=== PATIENT | male | born 1975 ===

== ENCOUNTER 2016-07-07 17:22 | Emergency (ER) | payer OTHER ==
[2016-07-07 17:22] VITALS: BMI 29.0
[2016-07-07 17:45] VITALS: BP 145/81; PULSE 82; RESP 16; TEMP 98.3; O2SAT 99
--- NOTE | 2016-07-07 19:12 | ED PDOC ---
HPI: General Adult Time Seen by Provider: 07/07/16 18:21 Chief Complaint (Nursing): Abdominal Pain Chief Complaint (Provider): Abdominal pain, knee pain, sore throat History Per: Patient Additional Complaint(s): Pt. states for the past 2 days he's had sore throat associated without fever. Also pt. is requesting new pain meds for his "chronic R knee pain." He has been taking Naproxen without relief. Further reports that his pantoprazole is not working and is requesting an Rx for pepcid. States that he has a long hx of "acid in the stomach." Denies fever, rash, chest pain, SOB, palpitations, sick contacts, recent travel. Past Medical History Reviewed: Historical Data, Nursing Documentation, Vital Signs Vital Signs: Last Vital Signs Temp 98.3 F 07/07/16 17:42 Pulse 82 07/07/16 17:42 Resp 16 07/07/16 17:42 BP 145/81 07/07/16 17:42 Pulse Ox 99 07/07/16 17:42 - Medical History PMH: Depression, Gastritis, Chronic Pain Denies: Diabetes, Hepatitis, HIV, HTN, Chronic Kidney Disease, Seizures, Sexually Transmitted Disease - Family History Family History: States: Unknown Family Hx - Immunization History Hx Tetanus Toxoid Vaccination: No Hx Influenza Vaccination: Yes (2015) Hx Pneumococcal Vaccination: No - Home Medications Home Medications: Ambulatory Orders Medication Instructions Recorded Mirtazapine [Remeron Soltab] 15 mg PO DAILY #5 odt 05/27/16 Mirtazapine [Remeron] 30 mg PO DAILY 05/27/16 buPROPion SR [Wellbutrin SR 150 MG] 150 mg PO DAILY 05/27/16 busPIRone [Buspar] 10 mg PO DAILY 05/27/16 Naproxen [Naprosyn Tab] 375 mg PO BID PRN #20 tab 06/23/16 Pantoprazole [Protonix EC Tab] 20 mg PO DAILY #15 ect 06/23/16 - Allergies Allergies/Adverse Reactions: Allergies Allergy/AdvReac Type Severity Reaction Status Date / Time No Known Allergies Allergy Verified 05/20/16 09:34 Review of Systems ROS Statement: Except As Marked, All Systems Reviewed And Found Negative ENT: Positive for: Throat Pain Gastrointestinal: Positive for: Abdominal Pain Physical Exam - Physical Exam Appears: Positive for: Well, Non-toxic, No Acute Distress Skin: Positive for: Normal Color, Warm. Negative for: Rash Eye Exam: Positive for: EOMI, Normal appearance, PERRL ENT: Positive for: TM Is/Are (WNL b/l), Pharyngeal Erythema. Negative for: Tonsillar Exudate, Tonsillar Swelling Gastrointestinal/Abdominal: Positive for: Normal Exam, Bowel Sounds, Soft. Negative for: Tenderness, Organomegaly Extremity: Positive for: Normal ROM (without tenderness including R knee) Neurologic/Psych: Positive for: Alert, Oriented - ECG O2 Sat by Pulse Oximetry: 99 - Progress ED Course And Treament: Toradol 15mg IM, pepcid 40mg PO, rapid strep ordered but pt. left before any tests and meds were given. Disposition - Clinical Impression Clinical Impression: Abdominal pain, Knee pain, Sore throat - Patient ED Disposition Is Patient to be Admitted: No - Disposition Disposition: Left W/O Treatment Disposition Time: 19:14 Condition: STABLE
== END 2016-07-07 19:11 | disposition left against medical advice (07) ==
LOC: H.ER 17:22
DX: Z02.89 Encounter for other administrative examinations (principal)

== ENCOUNTER 2016-07-13 09:29 | Emergency (ER) | payer OTHER ==
[2016-07-13 09:32] VITALS: BP 137/82; PULSE 90; RESP 18; TEMP 98; O2SAT 100; BMI 27.4
--- NOTE | 2016-07-13 10:06 | ED PDOC ---
Lower Extremity Pain/Injury Time Seen by Provider: 07/13/16 09:40 Chief Complaint (Nursing): Lower Extremity Problem/Injury Chief Complaint (Provider): right knee pain History Per: Patient History/Exam Limitations: no limitations Onset/Duration Of Symptoms: Days (1 year) Current Symptoms Are (Timing): Still Present Additional Complaint(s): Pt. with R knee pain. Constant. Ongoing for 1 year. No new injury. No numbness, tingles, weakness, calf pain, headaches. Ambulating on it. Demanding narcotics, imaging, and knee brace. Here yesterday and states he got bad care so he left. Past Medical History Reviewed: Nursing Documentation, Vital Signs Vital Signs: Last Vital Signs Temp 98.0 F 07/13/16 09:31 Pulse 90 07/13/16 09:31 Resp 18 07/13/16 09:31 BP 137/82 07/13/16 09:31 Pulse Ox 100 07/13/16 09:31 - Medical History PMH: Depression, Gastritis, Chronic Pain Denies: Diabetes, Hepatitis, HIV, HTN, Chronic Kidney Disease, Seizures, Sexually Transmitted Disease - Family History Family History: States: Unknown Family Hx - Social History Alcohol: None Drugs: Denies - Immunization History Hx Tetanus Toxoid Vaccination: No Hx Influenza Vaccination: Yes (2015) Hx Pneumococcal Vaccination: No - Home Medications Home Medications: Ambulatory Orders Medication Instructions Recorded Mirtazapine [Remeron Soltab] 15 mg PO DAILY #5 odt 05/27/16 Mirtazapine [Remeron] 30 mg PO DAILY 05/27/16 buPROPion SR [Wellbutrin SR 150 MG] 150 mg PO DAILY 05/27/16 busPIRone [Buspar] 10 mg PO DAILY 05/27/16 Naproxen [Naprosyn Tab] 375 mg PO BID PRN #20 tab 06/23/16 Pantoprazole [Protonix EC Tab] 20 mg PO DAILY #15 ect 06/23/16 Ibuprofen [Motrin] 600 mg PO TID 7 Days 07/13/16 - Allergies Allergies/Adverse Reactions: Allergies Allergy/AdvReac Type Severity Reaction Status Date / Time No Known Allergies Allergy Verified 05/20/16 09:34 Review of Systems Constitutional: Negative for: Weakness Cardiovascular: Negative for: Chest Pain Respiratory: Negative for: Shortness of Breath Musculoskeletal: Positive for: Leg Pain. Negative for: Neck Pain, Shoulder Pain , Arm Pain, Back Pain, Hand Pain Skin: Negative for: Rash Neurological: Negative for: Weakness Physical Exam - Reviewed Nursing Documentation Reviewed: Yes - Physical Exam Appears: Positive for: Well, Non-toxic, No Acute Distress ENT: Positive for: Normal ENT Inspection Neck: Positive for: Normal, Painless ROM, Supple Cardiovascular/Chest: Positive for: Regular Rate, Rhythm Respiratory: Positive for: Normal Breath Sounds Back: Positive for: Normal Inspection. Negative for: L CVA Tenderness, R CVA Tenderness Extremity: Positive for: Normal ROM, Other (no laxity). Negative for: Tenderness, Pedal Edema, Deformity - ECG O2 Sat by Pulse Oximetry: 100 Pulse Ox Interpretation: Normal - Radiology X-Ray: Interpreted by Me, Viewed By Me X-Ray Interpretation: No Acute Disease - Progress ED Course And Treament: 1104: Demanding narcotics. Aggressive toward staff. Ambulating with no issues. Fu with pcp. Disposition - Clinical Impression Clinical Impression: Knee pain - Patient ED Disposition Is Patient to be Admitted: No Counseled Patient/Family Regarding: Studies Performed, Diagnosis, Need For Followup, Rx Given - Disposition Referrals: [facility] [Outside] - 07/14/16 Disposition: Routine/Home Disposition Time: 11:05 Condition: STABLE Additional Instructions: Return if not better in 3 days. Prescriptions: Ibuprofen [Motrin] 600 mg PO TID 7 Days Instructions: Knee Pain (ED)
--- NOTE | 2016-07-13 13:17 | RAD ---
PROCEDURE: Right Knee Radiographs. HISTORY: pain COMPARISON: 04/17/2016 FINDINGS: BONES: No fracture. Evidence of prior ACL repair. JOINTS: Mild tricompartmental osteoarthritis. Mild joint space narrowing and marginal osteophytes. . JOINT EFFUSION: None. OTHER FINDINGS: None. IMPRESSION: Mild tricompartmental osteoarthritis. Evidence of prior ACL repair. No acute fracture.
== END 2016-07-13 11:54 | disposition home or self-care (01) ==
LOC: H.ER 09:29
DX: M25.561 Pain in right knee (principal)

== ENCOUNTER 2016-07-31 17:00 | Emergency (ER) | payer OTHER ==
[2016-07-31 17:00] VITALS: BMI 29.0
[2016-07-31 17:08] VITALS: BP 124/53; PULSE 103; RESP 20; TEMP 97.1; O2SAT 98
--- NOTE | 2016-07-31 17:52 | ED PDOC ---
Lower Extremity Pain/Injury Time Seen by Provider: 07/31/16 17:46 Chief Complaint (Nursing): Lower Extremity Problem/Injury Chief Complaint (Provider): right knee pain History Per: Patient History/Exam Limitations: no limitations Onset/Duration Of Symptoms: Days (years) Additional Complaint(s): Pito Clarke is a 40 year old male, with a previous medical history of chronic right knee pain and gastritis, who presents to the ED with complaints of right knee pain which has been ongoing for years. Pt denies any recent trauma , fall, injury to the knee, half tenderness, numbness or tingling. Pt is requesting narcotic medication for the pain. Pt is requesting prevacid for heartburn he is experiencing. Of note, pt was seen in the ED multiple times for right knee pain requesting narcotic. Last ED visit was 2 weeks ago where he requested narcotics. PMD: none provided Past Medical History Reviewed: Historical Data, Nursing Documentation, Vital Signs Vital Signs: Last Vital Signs Temp 97.1 F L 07/31/16 17:03 Pulse 103 H 07/31/16 17:03 Resp 20 07/31/16 17:03 BP 124/53 L 07/31/16 17:03 Pulse Ox 98 07/31/16 17:03 - Medical History PMH: Depression, Gastritis, Chronic Pain Denies: Diabetes, Hepatitis, HIV, HTN, Chronic Kidney Disease, Seizures, Sexually Transmitted Disease - Family History Family History: States: Unknown Family Hx - Immunization History Hx Tetanus Toxoid Vaccination: No Hx Influenza Vaccination: Yes (2015) Hx Pneumococcal Vaccination: No - Home Medications Home Medications: Ambulatory Orders Medication Instructions Recorded Mirtazapine [Remeron Soltab] 15 mg PO DAILY #5 odt 05/27/16 Mirtazapine [Remeron] 30 mg PO DAILY 05/27/16 buPROPion SR [Wellbutrin SR 150 MG] 150 mg PO DAILY 05/27/16 busPIRone [Buspar] 10 mg PO DAILY 05/27/16 Naproxen [Naprosyn Tab] 375 mg PO BID PRN #20 tab 06/23/16 Pantoprazole [Protonix EC Tab] 20 mg PO DAILY #15 ect 06/23/16 Ibuprofen [Motrin] 600 mg PO TID 7 Days 07/13/16 Naproxen 500 mg PO Q8 #30 tab 07/31/16 - Allergies Allergies/Adverse Reactions: Allergies Allergy/AdvReac Type Severity Reaction Status Date / Time No Known Allergies Allergy Verified 07/31/16 17:03 Review of Systems ROS Statement: Except As Marked, All Systems Reviewed And Found Negative Gastrointestinal: Positive for: Other (heart burn ) Musculoskeletal: Positive for: Leg Pain (right knee pain ) Physical Exam - Reviewed Nursing Documentation Reviewed: Yes Vital Signs Reviewed: Yes - Physical Exam Appears: Positive for: Well, Non-toxic, No Acute Distress Head Exam: Positive for: ATRAUMATIC, NORMAL INSPECTION, NORMOCEPHALIC Extremity: Positive for: Normal ROM, Capillary Refill (< 2 seconds ). Negative for: Tenderness, Pedal Edema, Calf Tenderness, Deformity, Swelling Neurologic/Psych: Positive for: Alert, Oriented - ECG O2 Sat by Pulse Oximetry: 98 (RA) Pulse Ox Interpretation: Normal Medical Decision Making Medical Decision Making: Initial Impression: Initial Plan: * toradol * reevaluation Scribe Attestation: Documented by Antoinette Swan, acting as a scribe for Rebeca Shukla PA-C. Provider Scribe Attestation: All medical record entries made by the Scribe were at my direction and personally dictated by me. I have reviewed the chart and agree that the record accurately reflects my personal performance of the history, physical exam, medical decision making, and the department course for this patient. I have also personally directed, reviewed, and agree with the discharge instructions and disposition. Disposition - Clinical Impression Clinical Impression: Chronic knee pain - Patient ED Disposition Is Patient to be Admitted: No Counseled Patient/Family Regarding: Studies Performed, Diagnosis, Need For Followup - Disposition Referrals: Chelita Velázquez [Primary Care Provider] - Disposition: Routine/Home Disposition Time: 18:26 Condition: STABLE Prescriptions: Naproxen 500 mg PO Q8 #30 tab Instructions: Knee Pain (ED)
== END 2016-07-31 18:46 | disposition home or self-care (01) ==
LOC: H.ER 17:00
DX: M25.561 Pain in right knee (principal)

== ENCOUNTER 2016-08-11 10:53 | Emergency (ER) | payer OTHER ==
[2016-08-11 10:53] VITALS: BMI 29.0
[2016-08-11 11:20] VITALS: BP 108/66; PULSE 80; RESP 20; TEMP 98.3; O2SAT 98
--- NOTE | 2016-08-11 13:01 | ED PDOC ---
HPI: CCC, URI, Sore Throat Time Seen by Provider: 08/11/16 11:53 Chief Complaint (Nursing): ENT Problem Chief Complaint (Provider): Sore Throat History Per: Patient History/Exam Limitations: no limitations Have you had recent travel within the past 21 days to any of the following countries: [place], [place], [place] or [place]?: No Onset/Duration Of Symptoms: Days (since yesterday) Current Symptoms Are (Timing): Still Present Associated Symptoms: denies: Fever, Chills, Myalgias, Other (no shortness of breath) Severity: Moderate Additional Complaint(s): Pito Clarke is a 40 year old male, with no pertinent past medical history, who presents to the ED on 08/11/16 for the evaluation of a moderately sore throat that he has experienced since yesterday after having inhaled some dust while sleeping on the floor of a local homeless alf. Patient also reports feeling as if there is a "lump" in his throat, a sensation that is made worse by swallowing. Denies fever, chills, myalgias, dizziness or shortness of breath. Requesting that he be tested for Strep. PMD: non CPH Past Medical History Reviewed: Historical Data, Nursing Documentation, Vital Signs Vital Signs: Last Vital Signs Temp 98.3 F 08/11/16 11:18 Pulse 80 08/11/16 11:18 Resp 20 08/11/16 11:18 BP 108/66 08/11/16 11:18 Pulse Ox 98 08/11/16 13:04 - Medical History PMH: Depression, Gastritis, Chronic Pain Denies: Diabetes, Hepatitis, HIV, HTN, Chronic Kidney Disease, Seizures, Sexually Transmitted Disease - Family History Family History: States: Unknown Family Hx - Living Arrangements Living Arrangements: Other (homeless) - Social History Current smoker - smoking cessation education provided: Yes (light (<10 cigarettes/day)) Alcohol: None Drugs: Denies - Immunization History Hx Tetanus Toxoid Vaccination: No Hx Influenza Vaccination: Yes (2016) Hx Pneumococcal Vaccination: No - Home Medications Home Medications: Ambulatory Orders Medication Instructions Recorded Mirtazapine [Remeron Soltab] 15 mg PO DAILY #5 odt 05/27/16 Mirtazapine [Remeron] 30 mg PO DAILY 05/27/16 buPROPion SR [Wellbutrin SR 150 MG] 150 mg PO DAILY 05/27/16 busPIRone [Buspar] 10 mg PO DAILY 05/27/16 Naproxen [Naprosyn Tab] 375 mg PO BID PRN #20 tab 06/23/16 Pantoprazole [Protonix EC Tab] 20 mg PO DAILY #15 ect 06/23/16 Ibuprofen [Motrin] 600 mg PO TID 7 Days 07/13/16 Naproxen 500 mg PO Q8 #30 tab 07/31/16 Albuterol HFA [Ventolin HFA 90 2 puff IH Q6 #200 puff 08/11/16 mcg/actuation (8 g)] - Allergies Allergies/Adverse Reactions: Allergies Allergy/AdvReac Type Severity Reaction Status Date / Time No Known Allergies Allergy Verified 07/31/16 17:03 Review of Systems Constitutional: Negative for: Fever, Chills, Other (no myalgias) ENT: Positive for: Throat Pain Respiratory: Negative for: Shortness of Breath Neurological: Negative for: Dizziness Physical Exam - Reviewed Nursing Documentation Reviewed: Yes Vital Signs Reviewed: Yes - Physical Exam Appears: Positive for: Non-toxic, No Acute Distress Head Exam: Positive for: ATRAUMATIC, NORMOCEPHALIC Skin: Positive for: Normal Color, Warm, Dry Eye Exam: Positive for: Normal appearance, PERRL ENT: Positive for: Normal ENT Inspection. Negative for: Pharyngeal Erythema, Tonsillar Exudate, Tonsillar Swelling Cardiovascular/Chest: Positive for: Regular Rate, Rhythm. Negative for: Murmur Respiratory: Positive for: Normal Breath Sounds. Negative for: Rales, Rhonchi, Wheezing, Respiratory Distress Neurologic/Psych: Positive for: Alert, Oriented - ECG O2 Sat by Pulse Oximetry: 98 (RA) Pulse Ox Interpretation: Normal Medical Decision Making Medical Decision Makin:53 Initial Impression: throat pain Patient has declined offer of supplemental O2. Initial Plan: * Rapid Strep * Throat Culture rapid strep: negative pt given albuterol resucue inhaler for coughing Scribe Attestation: Documented by Karli Luis, acting as a scribe for Rebeca Shukla PA-C. Provider Scribe Attestation: All medical record entries made by the Scribe were at my direction and personally dictated by me. I have reviewed the chart and agree that the record accurately reflects my personal performance of the history, physical exam, medical decision making, and the department course for this patient. I have also personally directed, reviewed, and agree with the discharge instructions and disposition. Disposition - Clinical Impression Clinical Impression: Sore throat - Patient ED Disposition Is Patient to be Admitted: No Counseled Patient/Family Regarding: Studies Performed, Diagnosis, Need For Followup, Rx Given - Disposition Disposition: Routine/Home Disposition Time: 13:09 Condition: STABLE Prescriptions: Albuterol HFA [Ventolin HFA 90 mcg/actuation (8 g)] 2 puff IH Q6 #200 puff Instructions: Albuterol (By breathing)
== END 2016-08-11 13:45 | disposition home or self-care (01) ==
LOC: H.ER 10:53
DX: J02.9 Acute pharyngitis, unspecified (principal)

== ENCOUNTER 2016-10-10 20:14 | Emergency (ER) | payer MEDICAID, OTHER ==
[2016-10-10 20:14] VITALS: BMI 29.0
[2016-10-10 20:48] VITALS: BP 121/68; PULSE 98; RESP 18; TEMP 98.3; O2SAT 99
--- NOTE | 2016-10-10 22:25 | CT ---
EXAM: CT Head Without Intravenous Contrast CLINICAL HISTORY: 41 years old, male; Pain; Headache; Headache not specified; Additional info: Headaches, waking up from sleep TECHNIQUE: Axial computed tomography images of the head/brain without intravenous contrast. This CT exam was performed using one or more of the following dose reduction techniques: automated exposure control, adjustment of the mA and/or kV according to patient size, and/or use of iterative reconstruction technique. Coronal and sagittal reformatted images were created and reviewed. COMPARISON: No relevant prior studies available. FINDINGS: Brain: No intracranial hemorrhage. No mass. No definite edema. Ventricles: No hydrocephalus. Bones/joints: No acute fracture. Soft tissues: Unremarkable. Sinuses: Scattered minimal to mild mucosal thickening of frontal, ethmoid sinuses. Small LEFT sphenoid retention cyst. Mastoid air cells: No mastoid effusion. Orbits: Unremarkable as visualized. IMPRESSION: 1. No acute intracranial abnormality. 2. Incidental/non-acute findings are described above.
--- NOTE | 2016-10-10 23:30 | ED PDOC ---
HPI: Headache Time Seen by Provider: 10/10/16 21:47 Chief Complaint (Nursing): Headache Chief Complaint (Provider): Headaches, "I feeling like something is in my head" History Per: Patient History/Exam Limitations: no limitations Onset/Duration Of Symptoms: Days Current Symptoms Are (Timing): Still Present Severity: Severe Pain Scale Rating Of: 10 Quality: Sharp Preceeding Symptoms: None Additional Complaint(s): Pt states he knows something is wrong. Pt cannot given specific symptoms of "whats wrong" but states he wakes up from sleep with headaches. Past Medical History Reviewed: Historical Data, Nursing Documentation, Vital Signs Vital Signs: Last Vital Signs Temp 98.3 F 10/10/16 20:45 Pulse 98 H 10/10/16 20:45 Resp 18 10/10/16 20:45 BP 121/68 10/10/16 20:45 Pulse Ox 99 10/10/16 20:45 - Medical History PMH: Depression, Gastritis, Chronic Pain Denies: Diabetes, Hepatitis, HIV, HTN, Chronic Kidney Disease, Seizures, Sexually Transmitted Disease - Surgical History Surgical History: No Surg Hx - Family History Family History: States: Unknown Family Hx - Immunization History Hx Tetanus Toxoid Vaccination: No Hx Influenza Vaccination: Yes (2016) Hx Pneumococcal Vaccination: No - Home Medications Home Medications: Ambulatory Orders Medication Instructions Recorded Mirtazapine [Remeron Soltab] 15 mg PO DAILY #5 odt 05/27/16 Mirtazapine [Remeron] 30 mg PO DAILY 05/27/16 buPROPion SR [Wellbutrin SR 150 MG] 150 mg PO DAILY 05/27/16 busPIRone [Buspar] 10 mg PO DAILY 05/27/16 Naproxen [Naprosyn Tab] 375 mg PO BID PRN #20 tab 06/23/16 Pantoprazole [Protonix EC Tab] 20 mg PO DAILY #15 ect 06/23/16 Ibuprofen [Motrin] 600 mg PO TID 7 Days 07/13/16 Naproxen 500 mg PO Q8 #30 tab 07/31/16 Acetaminophen [Tylenol 325mg tab] 650 mg PO Q6 #30 tab 08/11/16 Albuterol HFA [Ventolin HFA 90 2 puff IH Q6 #200 puff 08/11/16 mcg/actuation (8 g)] - Allergies Allergies/Adverse Reactions: Allergies Allergy/AdvReac Type Severity Reaction Status Date / Time No Known Allergies Allergy Verified 07/31/16 17:03 Review of Systems ROS Statement: Except As Marked, All Systems Reviewed And Found Negative Neurological: Positive for: Headache Physical Exam - Reviewed Nursing Documentation Reviewed: Yes Vital Signs Reviewed: Yes - Physical Exam Appears: Positive for: Well, Non-toxic, No Acute Distress Head Exam: Positive for: ATRAUMATIC, NORMAL INSPECTION, NORMOCEPHALIC Skin: Positive for: Normal Color, Warm, DRY Eye Exam: Positive for: EOMI, Normal appearance, PERRL ENT: Positive for: Normal ENT Inspection Neck: Positive for: Normal, Painless ROM Cardiovascular/Chest: Positive for: Regular Rate, Rhythm Respiratory: Positive for: CNT, Normal Breath Sounds Gastrointestinal/Abdominal: Positive for: Normal Exam, Bowel Sounds, Soft Back: Positive for: Normal Inspection Extremity: Positive for: Normal ROM Neurologic/Psych: Positive for: Alert, Oriented - ECG O2 Sat by Pulse Oximetry: 99 Pulse Ox Interpretation: Normal Disposition - Clinical Impression Clinical Impression: Headache - Patient ED Disposition Is Patient to be Admitted: No Counseled Patient/Family Regarding: Diagnosis, Need For Followup - Disposition Referrals: [facility] [Outside] Disposition: Routine/Home Disposition Time: 23:31 Condition: GOOD Instructions: Acute Headache (ED)
== END 2016-10-10 23:59 | disposition home or self-care (01) ==
LOC: H.ER 20:14
DX: R51 Headache (principal)

== ENCOUNTER 2016-11-06 06:32 | Emergency (ER) | payer OTHER ==
[2016-11-06 06:33] VITALS: BMI 29.0
[2016-11-06 06:47] VITALS: TEMP 98
--- NOTE | 2016-11-06 07:29 | ED PDOC ---
Lower Extremity Pain/Injury Time Seen by Provider: 11/06/16 07:10 Chief Complaint (Nursing): Lower Extremity Problem/Injury Chief Complaint (Provider): Right knee pain History Per: Patient History/Exam Limitations: no limitations Onset/Duration Of Symptoms: Days (since 2009) Current Symptoms Are (Timing): Still Present Additional Complaint(s): Pito Clarke is a 41 y/o male with a past medical history of right ACL repair , who presents to the emergency room complaining of right knee pain, ongoing since 2009, as well as sinus pressure. Patient reports needing an X-Ray of his right knee before he sees his orthopedist in [place]. He states needing to see the specialist in [place] due to issues with insurance. Patient reports taking Motrin and Tylenol without relief of his sinus pressure. PMD: Taylor Serrato MD Past Medical History Reviewed: Historical Data, Nursing Documentation, Vital Signs Vital Signs: Last Vital Signs Temp 98 F 11/06/16 06:44 Pulse 63 11/06/16 06:44 Resp 16 11/06/16 06:44 BP 112/51 L 11/06/16 06:44 Pulse Ox 98 11/06/16 06:44 - Medical History PMH: Depression, Gastritis, Chronic Pain Denies: Diabetes, Hepatitis, HIV, HTN, Chronic Kidney Disease, Seizures, Sexually Transmitted Disease - Surgical History Other surgeries: Right ACL repair - Family History Family History: States: Unknown Family Hx - Social History Current smoker - smoking cessation education provided: Yes (Light smoker) Alcohol: None Drugs: Cannabis - Immunization History Hx Tetanus Toxoid Vaccination: No Hx Influenza Vaccination: Yes (2015) Hx Pneumococcal Vaccination: No - Home Medications Home Medications: Ambulatory Orders Medication Instructions Recorded Mirtazapine [Remeron Soltab] 15 mg PO DAILY #5 odt 05/27/16 Mirtazapine [Remeron] 30 mg PO DAILY 05/27/16 buPROPion SR [Wellbutrin SR 150 MG] 150 mg PO DAILY 05/27/16 busPIRone [Buspar] 10 mg PO DAILY 05/27/16 Pantoprazole [Protonix EC Tab] 20 mg PO DAILY #15 ect 06/23/16 Ibuprofen [Motrin] 600 mg PO TID 7 Days 07/13/16 Naproxen 500 mg PO Q8 #30 tab 07/31/16 Acetaminophen [Tylenol 325mg tab] 650 mg PO Q6 #30 tab 08/11/16 Albuterol HFA [Ventolin HFA 90 2 puff IH Q6 #200 puff 08/11/16 mcg/actuation (8 g)] Ibuprofen [Motrin] 600 mg PO Q6H PRN #20 tab 11/06/16 Ciprofloxacin [Cipro] 1 tab PO BID #14 tab 11/08/16 Ibuprofen [Motrin] 1 tab PO TID PRN #30 tab 11/08/16 - Allergies Allergies/Adverse Reactions: Allergies Allergy/AdvReac Type Severity Reaction Status Date / Time No Known Allergies Allergy Verified 07/31/16 17:03 Review of Systems ROS Statement: Except As Marked, All Systems Reviewed And Found Negative ENT: Positive for: Other (Sinus pressure) Musculoskeletal: Positive for: Leg Pain (Right knee pain) Physical Exam - Reviewed Nursing Documentation Reviewed: Yes Vital Signs Reviewed: Yes - Physical Exam Appears: Positive for: Well, Non-toxic, No Acute Distress Head Exam: Positive for: ATRAUMATIC, NORMAL INSPECTION, NORMOCEPHALIC Skin: Positive for: Normal Color, Warm, Dry Eye Exam: Positive for: Normal appearance, EOMI, PERRL ENT: Positive for: Normal ENT Inspection. Negative for: Sinus Pain/Drainage ( No sinus tenderness on palpation) Neck: Positive for: Normal, Painless ROM, Supple Cardiovascular/Chest: Positive for: Regular Rate, Rhythm. Negative for: Murmur Respiratory: Positive for: Normal Breath Sounds. Negative for: Accessory Muscle Use, Respiratory Distress Back: Positive for: Normal Inspection. Negative for: L CVA Tenderness, R CVA Tenderness, Vertebral Tenderness Extremity: Positive for: Normal ROM (Full ROM at the knee). Negative for: Pedal Edema, Deformity Neurologic/Psych: Positive for: Alert, Oriented - ECG O2 Sat by Pulse Oximetry: 98 (RA) Pulse Ox Interpretation: Normal - Radiology X-Ray: Interpreted by Me, Viewed By Me Nexus Criteria: Negative Medical Decision Making Medical Decision Making: Time: 07:24 Initial Plan: --Pending X-Ray Right Knee 2 views --Of note, Patient was here on 10/10/2016 and had a Head CT that was normal Time: 09:33 Upon provider evaluation patient is medically stable, and requires no further treatment in the ED at this time. Patient will be discharged with Rx for Ibuprofen 600 mg PO as needed for pain. Counseling was provided and all questions were answered regarding diagnosis and need for follow up. There is agreement to discharge plan. Return if symptoms persist or worsen. Scribe Attestation: Documented by Didi Abreu, acting as a scribe for Antoinette Kaiser MD Provider Scribe Attestation: All medical record entries made by the Scribe were at my direction and personally dictated by me. I have reviewed the chart and agree that the record accurately reflects my personal performance of the history, physical exam, medical decision making, and the department course for this patient. I have also personally directed, reviewed, and agree with the discharge instructions and disposition. Disposition - Clinical Impression Clinical Impression: Chronic knee pain - Patient ED Disposition Is Patient to be Admitted: No Doctor Will See Patient In The: Office Counseled Patient/Family Regarding: Diagnosis, Need For Followup, Rx Given - Disposition [facility] Disposition: Routine/Home Disposition Time: 09:30 Condition: STABLE Prescriptions: Ibuprofen [Motrin] 600 mg PO Q6H PRN #20 tab PRN Reason: Pain, Moderate (4-7) Instructions: Knee Pain (ED)
--- NOTE | 2016-11-06 09:35 | RAD ---
PROCEDURE: Right Knee Radiographs, two views. HISTORY: COMPARISON: None available. FINDINGS: BONES: Postsurgical changes. No acute displaced fracture. JOINTS: No dislocation. JOINT EFFUSION: No significant joint effusion. OTHER FINDINGS: None. IMPRESSION: No acute displaced fracture, dislocation, or significant joint effusion identified. If symptoms persist, or if there is continued clinical concern, x-ray follow-up in 7-10 days should be considered.
[2016-11-06 09:40] VITALS: BP 118/65; PULSE 88; RESP 18
[2016-11-15 14:20] VITALS: O2SAT 98
== END 2016-11-06 09:40 | disposition home or self-care (01) ==
LOC: H.ER 06:32
DX: M25.561 Pain in right knee (principal)

== ENCOUNTER 2016-11-20 14:08 | Emergency (ER) | payer MEDICAID, OTHER ==
[2016-11-20 14:08] VITALS: BMI 29.0
[2016-11-20 14:36] VITALS: BP 130/65; PULSE 77; RESP 16; TEMP 98; O2SAT 98
--- NOTE | 2016-11-20 14:42 | ED PDOC ---
Lower Extremity Pain/Injury Time Seen by Provider: 11/20/16 14:34 Chief Complaint (Nursing): Lower Extremity Problem/Injury Chief Complaint (Provider): Lower Extremity Problem History Per: Patient History/Exam Limitations: no limitations Onset/Duration Of Symptoms: Days (several weeks) Current Symptoms Are (Timing): Still Present Severity: Moderate Additional Complaint(s): 41 year old male with no pertinent medical history presents to the ED with complaints of atraumatic right knee pain that started several weeks ago. He was seen in the ED on 11/07/2016 for the same complaint. His XRay from that visit was normal and he was prescribed ibuprofen, which he has been taking with no relief. He reports that he has an appointment to see an orthopedist next month ( ). He denies having any trauma to the area, numbness, tingling, calf pain, fevers, or rashes. PMD: Elliot Shukla MD Past Medical History Reviewed: Historical Data, Nursing Documentation, Vital Signs Vital Signs: Last Vital Signs Temp 98 F 11/20/16 14:32 Pulse 77 11/20/16 14:32 Resp 16 11/20/16 14:32 BP 130/65 11/20/16 14:32 Pulse Ox 98 11/20/16 14:32 - Medical History PMH: Depression, Gastritis, Chronic Pain Denies: Diabetes, Hepatitis, HIV, HTN, Chronic Kidney Disease, Seizures, Sexually Transmitted Disease - Family History Family History: States: Unknown Family Hx - Social History Current smoker - smoking cessation education provided: Yes Alcohol: None - Immunization History Hx Tetanus Toxoid Vaccination: No Hx Influenza Vaccination: Yes (2015) Hx Pneumococcal Vaccination: No - Home Medications Home Medications: Ambulatory Orders Medication Instructions Recorded Mirtazapine [Remeron Soltab] 15 mg PO DAILY #5 odt 05/27/16 Mirtazapine [Remeron] 30 mg PO DAILY 05/27/16 buPROPion SR [Wellbutrin SR 150 MG] 150 mg PO DAILY 05/27/16 busPIRone [Buspar] 10 mg PO DAILY 05/27/16 Pantoprazole [Protonix EC Tab] 20 mg PO DAILY #15 ect 06/23/16 Ibuprofen [Motrin] 600 mg PO TID 7 Days 07/13/16 Naproxen 500 mg PO Q8 #30 tab 07/31/16 Acetaminophen [Tylenol 325mg tab] 650 mg PO Q6 #30 tab 08/11/16 Albuterol HFA [Ventolin HFA 90 2 puff IH Q6 #200 puff 08/11/16 mcg/actuation (8 g)] Ibuprofen [Motrin] 600 mg PO Q6H PRN #20 tab 11/06/16 Ciprofloxacin [Cipro] 1 tab PO BID #14 tab 11/08/16 Ibuprofen [Motrin] 1 tab PO TID PRN #30 tab 11/08/16 Meloxicam [Mobic] 7.5 mg PO DAILY PRN #14 tab 11/20/16 - Allergies Allergies/Adverse Reactions: Allergies Allergy/AdvReac Type Severity Reaction Status Date / Time No Known Allergies Allergy Verified 07/31/16 17:03 Review of Systems Constitutional: Negative for: Fever Musculoskeletal: Positive for: Leg Pain (right knee pain). Negative for: Other (calf pain) Neurological: Negative for: Numbness (no tingling) Physical Exam - Reviewed Nursing Documentation Reviewed: Yes Vital Signs Reviewed: Yes - Physical Exam Appears: Positive for: Well, Non-toxic, No Acute Distress Head Exam: Positive for: ATRAUMATIC, NORMOCEPHALIC Pulses-Dorsalis Pedis (L): 2+ Pulses-Dorsalis Pedis (R): 2+ Extremity: Positive for: Normal ROM (right knee: full range of motion actively. No warmth, no erythema, no break in skin integrity). Negative for: Tenderness ( of right knee), Calf Tenderness (bilaterally), Deformity (of right knee), Swelling (of right knee), Other (no skin changes bilaterally) Neurologic/Psych: Positive for: Alert, Oriented (3x) - ECG O2 Sat by Pulse Oximetry: 98 (RA) Pulse Ox Interpretation: Normal Medical Decision Making Medical Decision Makin:34 Initial impression: 41 year old male with atraumatic knee pain. Initial plan: * tylneol 650 mg PO * Instructed patient to follow up with orthopedist as previously instructed and to stop taking ibuprofen and start taking Mobic instead. * knee john wrap done by YANCY Scribe Attestation: Documented by Ciarra Silva, acting as a scribe for Steven Montes Provider Scribe Attestation: All medical record entries made by the Scribe were at my direction and personally dictated by me. I have reviewed the chart and agree that the record accurately reflects my personal performance of the history, physical exam, medical decision making, and the department course for this patient. I have also personally directed, reviewed, and agree with the discharge instructions and disposition. Disposition - Clinical Impression Clinical Impression: Knee pain - Disposition Referrals: [facility] [Outside] [facility] [Outside] Disposition Time: 15:30 Condition: STABLE Prescriptions: Meloxicam [Mobic] 7.5 mg PO DAILY PRN #14 tab PRN Reason: Pain, Mild (1-3) Instructions: Knee Pain (ED) Forms: [employer] (Sri Lankan) Print Language: IRISH
== END 2016-11-20 15:38 | disposition home or self-care (01) ==
LOC: H.ER 14:08
DX: M25.561 Pain in right knee (principal); G89.29 Other chronic pain; F32.9 Major depressive disorder, single episode, unspecified

== ENCOUNTER 2017-03-30 22:44 | Emergency (ER) | payer MEDICAID, OTHER ==
[2017-03-30 22:44] VITALS: BMI 29.0
[2017-03-30 23:05] VITALS: BP 106/60; PULSE 86; RESP 16; TEMP 97.8; O2SAT 100
[2017-03-31] MEDS ORDERED: Promethazine/Cod 6.25mg-10mg/5ml Syr UD PO STA (00:09)
--- NOTE | 2017-03-31 00:14 | ED PDOC ---
HPI: CCC, URI, Sore Throat Time Seen by Provider: 03/30/17 23:30 Chief Complaint (Nursing): Flu-like Symptoms Chief Complaint (Provider): cough, headache x 1 week History Per: Patient History/Exam Limitations: no limitations Have you had recent travel within the past 21 days to any of the following countries: [place], [place], [place] or [place]?: No Onset/Duration Of Symptoms: Days (1 week) Current Symptoms Are (Timing): Still Present Location Of Pain: Sinus/es, Headache Sick Contacts (Context): None Associated Symptoms: Cough, Myalgias. denies: Neck Pain Severity: Moderate Pain Scale Rating Of: 4 Additional Complaint(s): Patient is a a41 year olfd Hispanicmale with no PMHX c/o 1 week dry cough associated with frontal headache and malaise. No fever, photophobia, neck pain or N/V. Patient taking OTC meds w/o relief. Past Medical History Reviewed: Historical Data, Nursing Documentation, Vital Signs Vital Signs: Last Vital Signs Temp 97.8 F 03/30/17 23:02 Pulse 86 03/30/17 23:02 Resp 16 03/30/17 23:02 BP 106/60 03/30/17 23:02 Pulse Ox 100 03/31/17 01:26 - Medical History PMH: Anxiety, Depression, Gastritis, Chronic Pain Denies: Diabetes, Hepatitis, HIV, HTN, Chronic Kidney Disease, Seizures, Sexually Transmitted Disease - Family History Family History: States: Unknown Family Hx - Social History Current smoker - smoking cessation education provided: No Alcohol: None Drugs: Denies - Immunization History Hx Tetanus Toxoid Vaccination: No Hx Influenza Vaccination: Yes (2015) Hx Pneumococcal Vaccination: No - Home Medications Home Medications: Ambulatory Orders Medication Instructions Recorded Mirtazapine [Remeron] 30 mg PO DAILY 05/27/16 Naproxen 500 mg PO Q8 #30 tab 07/31/16 Ibuprofen [Motrin] 600 mg PO Q6 PRN #20 tab 12/03/16 Amoxicillin/Clavulanate [Augmentin 1 tab PO BID #14 tab 03/31/17 875 MG-125 MG] Benzonatate [Tessalon Perle] 100 mg PO TID PRN #15 capsule 03/31/17 - Allergies Allergies/Adverse Reactions: Allergies Allergy/AdvReac Type Severity Reaction Status Date / Time No Known Allergies Allergy Verified 03/30/17 23:02 Review of Systems ROS Statement: Except As Marked, All Systems Reviewed And Found Negative Constitutional: Positive for: Chills, Malaise Respiratory: Positive for: Cough Neurological: Positive for: Headache Physical Exam - Reviewed Nursing Documentation Reviewed: Yes - Physical Exam Appears: Positive for: Well Head Exam: Positive for: ATRAUMATIC, NORMAL INSPECTION (B/L frontal sinus tenderness noted), NORMOCEPHALIC Skin: Positive for: Normal Color, Warm, Dry Eye Exam: Positive for: Normal appearance, EOMI, PERRL ENT: Positive for: Normal ENT Inspection Neck: Positive for: Normal, Painless ROM, Supple Cardiovascular/Chest: Positive for: Regular Rate, Rhythm Respiratory: Positive for: Normal Breath Sounds. Negative for: Crackles, Rales , Wheezing Gastrointestinal/Abdominal: Positive for: Normal Exam, Bowel Sounds, Soft. Negative for: Tenderness Back: Positive for: Normal Inspection. Negative for: L CVA Tenderness, R CVA Tenderness Extremity: Positive for: Normal ROM, Tenderness. Negative for: Pedal Edema Neurologic/Psych: Positive for: Alert, Oriented. Negative for: Motor/Sensory Deficits - ECG O2 Sat by Pulse Oximetry: 100 Medical Decision Making Medical Decision Makin41 year old male with flu like symptoms and sinus tenderness Rapid flu, Chest Xray and trila of Promethazine with Codeine Chest xray NAD Flu swab is negative Patient is stable for discharge home; Dx Sinusitis Rx Augmentin, Tessalon FU PCP 2 days Disposition - Clinical Impression Clinical Impression: Sinusitis - Patient ED Disposition Is Patient to be Admitted: No - Disposition Disposition: Routine/Home Disposition Time: 00:30 Condition: STABLE Prescriptions: Amoxicillin/Clavulanate [Augmentin 875 MG-125 MG] 1 tab PO BID #14 tab Benzonatate [Tessalon Perle] 100 mg PO TID PRN #15 capsule PRN Reason: Cough Instructions: Sinusitis (ED) Forms: [employer] (Japanese)
[2017-03-31] MEDS ORDERED: Promethazine/Cod 6.25mg-10mg/5ml Syr UD ONE (00:19)
--- NOTE | 2017-03-31 10:37 | RAD ---
HISTORY: cough COMPARISON: No prior. TECHNIQUE: Chest PA and lateral FINDINGS: LUNGS: No acute infiltrate. Re- demonstrated are at few curvilinear densities in the left anterior lower lung field on lateral projection likely in the left lung base felt to represent some minor chronic scar. PLEURA: No significant pleural effusion identified. No pneumothorax apparent. CARDIOVASCULAR: Normal. OSSEOUS STRUCTURES: No significant abnormalities. VISUALIZED UPPER ABDOMEN: Normal. OTHER FINDINGS: None. IMPRESSION: No acute infiltrates.
== END 2017-03-31 00:30 | disposition home or self-care (01) ==
LOC: H.ER 22:44
DX: J32.9 Chronic sinusitis, unspecified (principal); F32.9 Major depressive disorder, single episode, unspecified; F41.9 Anxiety disorder, unspecified; G89.29 Other chronic pain

== ENCOUNTER 2017-04-05 19:47 | Emergency (ER) | payer OTHER ==
[2017-04-05 19:47] VITALS: BMI 29.0
[2017-04-05 21:21] VITALS: BP 122/72; PULSE 75; RESP 16; TEMP 97.5; O2SAT 100
--- NOTE | 2017-04-05 23:41 | ED PDOC ---
HPI: General Adult Time Seen by Provider: 04/05/17 23:06 Chief Complaint (Nursing): Cough, Cold, Congestion Chief Complaint (Provider): Sinus pressure, antibiotics not working History Per: Patient History/Exam Limitations: no limitations Onset/Duration Of Symptoms: Days Have you had recent travel within the past 21 days to any of the following countries: [place], [place], [place] or [place]?: No Current Symptoms Are (Timing): Still Present Additional Complaint(s): Went into patient room at 2230 and patient not in room. 2305: Patient back in room. Pt states that he continues to have sinus pain. Pt states he is taking antibiotics and it is not working. Pt states he was also given something for pain but does not know the same. When chart reviewed Pt on augmentin and given cough medications. Pt reports improvement of cough. Pt requesting pain medication. Informed patient I would like to look into his chart to reveiw medications before I would order mediation for him. Shortly after sitting down to look at previous visit and medications pt was given. He comes out of the room yelling that he wants medication for pain now. Pt interrupts me when I attempt to explain I wanted to review the chart. Pt continues yelling and being very aggressive in holding area. I ask patient to sit down and wait. He states he wants my name so he can write me up for the way I was treating him. I got security for further evaluation of patient and exam. Past Medical History Reviewed: Historical Data, Nursing Documentation, Vital Signs Vital Signs: Last Vital Signs Temp 97.5 F L 04/05/17 21:18 Pulse 75 04/05/17 21:18 Resp 16 04/05/17 21:18 BP 122/72 04/05/17 21:18 Pulse Ox 100 04/05/17 21:18 - Medical History PMH: Anxiety, Depression, Gastritis, Chronic Pain Denies: Diabetes, Hepatitis, HIV, HTN, Chronic Kidney Disease, Seizures, Sexually Transmitted Disease - Surgical History Surgical History: No Surg Hx - Family History Family History: States: Unknown Family Hx - Immunization History Hx Tetanus Toxoid Vaccination: No Hx Influenza Vaccination: Yes (2015) Hx Pneumococcal Vaccination: No - Home Medications Home Medications: Ambulatory Orders Medication Instructions Recorded Mirtazapine [Remeron] 30 mg PO DAILY 05/27/16 Naproxen 500 mg PO Q8 #30 tab 07/31/16 Ibuprofen [Motrin] 600 mg PO Q6 PRN #20 tab 12/03/16 Amoxicillin/Clavulanate [Augmentin 1 tab PO BID #14 tab 03/31/17 875 MG-125 MG] Benzonatate [Tessalon Perle] 100 mg PO TID PRN #15 capsule 03/31/17 Doxycycline Monohydrate 100 mg PO BID #20 tablet 04/05/17 Guaifen/Phenyleph/Acetaminophn 1 tab PO BID #14 tab 04/05/17 [Mucinex Fast-Max Cold & Sinus 325 mg-200 mg-5] - Allergies Allergies/Adverse Reactions: Allergies Allergy/AdvReac Type Severity Reaction Status Date / Time No Known Allergies Allergy Verified 04/05/17 21:18 Review of Systems ROS Statement: Except As Marked, All Systems Reviewed And Found Negative Constitutional: Negative for: Fever, Chills ENT: Positive for: Other (Sinus pain). Negative for: Ear Pain Physical Exam - Reviewed Nursing Documentation Reviewed: Yes Vital Signs Reviewed: Yes - Physical Exam Appears: Positive for: Well, Non-toxic, No Acute Distress Head Exam: Positive for: ATRAUMATIC, NORMAL INSPECTION, NORMOCEPHALIC Skin: Positive for: Normal Color, Warm, DRY Eye Exam: Positive for: Normal appearance ENT: Positive for: Normal ENT Inspection, TM Is/Are (No perforation of B/L TM). Negative for: Pharynx Is Neck: Positive for: Normal, Painless ROM Cardiovascular/Chest: Positive for: Regular Rate, Rhythm Respiratory: Positive for: Normal Breath Sounds. Negative for: Accessory Muscle Use Back: Positive for: Normal Inspection Extremity: Positive for: Normal ROM. Negative for: Tenderness Neurologic/Psych: Positive for: Alert, Oriented - ECG O2 Sat by Pulse Oximetry: 100 Medical Decision Making Medical Decision Making: Patient given motrin in ER> Disposition - Clinical Impression Clinical Impression: Sinusitis - Disposition Referrals: [facility] [Outside] Disposition: Routine/Home Disposition Time: 23:43 Condition: STABLE Prescriptions: Doxycycline Monohydrate 100 mg PO BID #20 tablet Guaifen/Phenyleph/Acetaminophn [Mucinex Fast-Max Cold & Sinus 325 mg-200 mg-5] 1 tab PO BID #14 tab Instructions: Sinusitis (ED) Forms: [employer] (Lithuanian)
== END 2017-04-05 23:28 | disposition home or self-care (01) ==
LOC: H.ER 19:47
DX: J32.9 Chronic sinusitis, unspecified (principal); F32.9 Major depressive disorder, single episode, unspecified; F41.9 Anxiety disorder, unspecified; G89.29 Other chronic pain

== ENCOUNTER 2017-05-21 13:10 | Emergency (ER) | payer MEDICAID, OTHER ==
[2017-05-21 13:10] VITALS: BMI 29.0
[2017-05-21 13:35] VITALS: BP 105/64; PULSE 96; RESP 16; TEMP 98.2; O2SAT 100
[2017-05-21 14:33] LABS: BASO # 0.1 K/uL (0.0-0.2); BASO % 0.7 % (0.0-2.0); EOS # 0.1 K/uL (0.0-0.7); EOS % 0.9 % (0.0-4.0); HEMOGLOBIN 15.2 g/dL (12.0-18.0); LYMPH # 1.3 K/uL (1.0-4.3); LYMPH % 16.9 % (20.0-40.0); MEAN CELL VOLUME 88.6 fl (80.0-94.0); MEAN CORPUSCULAR HEMOGLOBIN 29.5 pg (27.0-31.0); MEAN CORPUSCULAR HGB CONC 33.3 g/dL (33.0-37.0); MEAN PLATELET VOLUME 9.4 fl (7.2-11.7); MONO # 0.8 K/uL (0.0-0.8); MONO % 10.2 % (0.0-10.0); NEUT # 5.7 K/uL (1.8-7.0); NEUT % 71.3 % (50.0-75.0); RBC 5.15 Mil/uL (4.40-5.90); RED CELL DISTRIBUTION WIDTH 13.8 % (11.5-14.5)
[2017-05-21 14:42] LABS: ALB/GLOB RATIO 1.1 (1.0-2.1); ALBUMIN 3.7 g/dL (3.5-5.0); ALT/SGPT 70 U/L (21-72); AST/SGOT 58 U/L (17-59); BLOOD UREA NITROGEN 18 mg/dl (9-20); CALCIUM 8.9 mg/dL (8.4-10.2); GFR AFRICAN-AMERICAN > 60; GFR NON-AFRICAN AMERICAN > 60; LIPASE 64 U/L (23-300)
[2017-05-21] MEDS: Sodium Chloride 0.9% 1,000 ML IV SCH ×3 (15:00→16:00)
[2017-05-21 15:11] LABS: URINE BILIRUBIN NEGATIVE (NEGATIVE); URINE BLOOD MODERATE (NEGATIVE); URINE CLARITY SLIGHTY-CLOUDY (Clear); URINE COLOR YELLOW (YELLOW); URINE GLUCOSE (UA) NEG (Normal); URINE LEUKOCYTE ESTERASE NEG Leu/uL (Negative); URINE NITRATE NEGATIVE (NEGATIVE); URINE PROTEIN 30 mg/dL (NEGATIVE); URINE UROBILINOGEN 0.2-1.0 mg/dL (0.2-1.0)
--- NOTE | 2017-05-21 16:30 | ED PDOC ---
HPI: Abdomen Time Seen by Provider: 05/21/17 13:28 Chief Complaint (Nursing): GI Problem Chief Complaint (Provider): Abdominal Pain, Vomiting History Per: Patient History/Exam Limitations: no limitations Onset/Duration Of Symptoms: Days (x 1) Current Symptoms Are (Timing): Still Present Additional Complaint(s): Pito is a 41 y/o male who was recently diagnosed with a UTI who presents to the ED complaining of abdominal pain and vomiting since yesterday. Patient states he had similar symptoms last week and was seen at the [facility] ER where he was diagnosed with a UTI and given Cipro which he lost and never took. He says his symptoms improved so he never followed up, but yesterday his symptoms came back, including nausea, vomiting, and difficulty tolerating PO. He denies diarrhea, recent travel, or abdominal surgery. PMD: [place] Past Medical History Reviewed: Historical Data, Nursing Documentation, Vital Signs Vital Signs: Last Vital Signs Temp 98.2 F 05/21/17 13:27 Pulse 96 H 05/21/17 13:27 Resp 16 05/21/17 13:27 BP 105/64 05/21/17 13:27 Pulse Ox 100 05/21/17 16:36 - Medical History PMH: Anxiety, Depression, Gastritis, Chronic Pain Denies: Diabetes, Hepatitis, HIV, HTN, Chronic Kidney Disease, Seizures, Sexually Transmitted Disease - Family History Family History: States: Unknown Family Hx - Immunization History Hx Tetanus Toxoid Vaccination: No Hx Influenza Vaccination: No (2015) Hx Pneumococcal Vaccination: No - Home Medications Home Medications: Ambulatory Orders Medication Instructions Recorded Amoxicillin/Clavulanate [Augmentin 1 tab PO BID #14 tab 04/06/17 875 MG-125 MG] Ibuprofen [Motrin] 600 mg PO TID #21 tab 04/06/17 Loratadine [Claritin] 10 mg PO DAILY #10 tab 04/06/17 predniSONE [Prednisone] 20 mg PO BID #10 tab 04/06/17 Famotidine [Pepcid] 40 mg PO DAILY #20 tablet 05/21/17 Ondansetron ODT [Zofran ODT] 4 mg PO DAILY PRN #20 odt 05/21/17 - Allergies Allergies/Adverse Reactions: Allergies Allergy/AdvReac Type Severity Reaction Status Date / Time No Known Allergies Allergy Verified 04/06/17 02:13 Review of Systems ROS Statement: Except As Marked, All Systems Reviewed And Found Negative Gastrointestinal: Positive for: Nausea, Vomiting, Abdominal Pain, Other ( difficulty tolerating po). Negative for: Diarrhea Physical Exam - Reviewed Nursing Documentation Reviewed: Yes (patient laying in bed comfortably, using his cell phone) Vital Signs Reviewed: Yes - Physical Exam Appears: Positive for: Well, Non-toxic, No Acute Distress Skin: Positive for: Normal Color, Warm, Dry ENT: Positive for: Normal ENT Inspection Neck: Positive for: Normal, Supple Cardiovascular/Chest: Positive for: Regular Rate, Rhythm. Negative for: Murmur Respiratory: Positive for: Normal Breath Sounds. Negative for: Rales, Rhonchi, Wheezing, Respiratory Distress Gastrointestinal/Abdominal: Positive for: Normal Exam, Bowel Sounds, Soft. Negative for: Tenderness, Organomegaly, Mass, Distended, Guarding, Rebound Back: Positive for: Normal Inspection. Negative for: L CVA Tenderness, R CVA Tenderness, Vertebral Tenderness Extremity: Positive for: Normal ROM, Capillary Refill (normal). 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 Negative for: Motor/Sensory Deficits - Laboratory Results Result Diagrams: 05/21/17 14:28 05/21/17 14:28 - ECG O2 Sat by Pulse Oximetry: 100 (RA) Pulse Ox Interpretation: Normal Medical Decision Making Medical Decision Making: Time: 13:55 Initial Impression: Vomiting, Abdominal Pain Initial Plan: --CMP --Lipase --CBC --Pepcid --Zofran --IVF --Urine Culture --Urinalysis Time: 14:50 --Labs reviewed within normal limits --UA positive blood but no infection --On re-evaluation, patient reports significant improvement of his symptoms, denies nausea, abdominal pain, patient is sitting up comfortably in no acute distress, using his cell phone. On exam, abdomen is soft w/ no tenderness, rebound, or guarding, no CVA tenderness. --Patient was informed of positive blood in urine but no infection which requires further follow up with PMD and urology referral provided. --Patient instructed to follow-up with pmd & referral provided in 1-2 days without fail. Advised to take medication as prescribed. Return to the emergency room at any time for any new or worsening symptoms. Patient states he fully agrees with and understands discharge instructions. States that he agrees with the plan and disposition. Verbalized and repeated discharge instructions and plan. I have given the patient opportunity to ask any additional questions. Scribe Attestation: Documented by Anthony Escobar, acting as a scribe for Norma Ledbetter PA-C. Provider Scribe Attestation: All medical record entries made by the Scribe were at my direction and personally dictated by me. I have reviewed the chart and agree that the record accurately reflects my personal performance of the history, physical exam, medical decision making, and the department course for this patient. I have also personally directed, reviewed, and agree with the discharge instructions and disposition. Disposition - Clinical Impression Clinical Impression: Abdominal pain, Nausea & vomiting - Patient ED Disposition Is Patient to be Admitted: No Counseled Patient/Family Regarding: Studies Performed, Diagnosis, Need For Followup, Rx Given - Disposition Referrals: Thiago Mackenzie Jr., MD [Staff Provider] - [facility] [Outside] Disposition: Routine/Home Disposition Time: 16:15 Condition: IMPROVED Additional Instructions: Thank you for letting us take care of you today. You were treated for abdominal pain, vomiting. The emergency medical care you received today was directed at your acute symptoms. If you were prescribed any medication, please fill it and take as directed. It may take several days for your symptoms to resolve. Return to the Emergency Department if your symptoms worsen, do not improve, or if you have any other problems. Please contact your doctor in 2 days for re-evaluation and follow up / or call one of the physicians/clinics you have been referred to that are listed on the Patient Visit Information form that is included in your discharge packet. Bring any paperwork you were given at discharge with you along with any medications you are taking to your follow up visit. Our treatment cannot replace ongoing medical care by a primary care provider (PCP) outside of the emergency department. Thank you for allowing the [facility] team to be part of your care today. Prescriptions: Famotidine [Pepcid] 40 mg PO DAILY #20 tablet Ondansetron ODT [Zofran ODT] 4 mg PO DAILY PRN #20 odt PRN Reason: Nausea/Vomiting Instructions: Acute Abdominal Pain (ED), Acute Nausea and Vomiting (ED) Forms: [employer] (Tongan), [facility] ED School/Work Excuse Print Language: INDONESIAN
== END 2017-05-21 17:26 | disposition home or self-care (01) ==
LOC: H.ER 13:10
DX: R10.9 Unspecified abdominal pain (principal); R11.2 Nausea with vomiting, unspecified; Z86.59 Personal history of other mental and behavioral disorders; G89.29 Other chronic pain
CPT/HCPCS: 80053; 81003; 83690; 85025; 87086; 96374; 96375; 99283; J2405; J7040

== ENCOUNTER 2017-11-03 | Emergency (ER) | payer MEDICAID, OTHER ==
[2017-11-03] VITALS: BMI 29.0
[2017-11-03] MEDS ORDERED: Alum-Mag Hydrox-Simethicone Susp (30 mL) PO STA (01:13)
[2017-11-03] MEDS ORDERED: Sodium Chloride 0.9% 1,000 ML IV STA (01:13)
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
[2017-11-03] MEDS ORDERED: Alum-Mag Hydrox-Simethicone Susp (30 mL) ONE (01:29)
[2017-11-03 01:42] LABS: URINE BILIRUBIN NEGATIVE (NEGATIVE); URINE BLOOD SMALL (NEGATIVE); URINE CLARITY SLIGHTY-CLOUDY (Clear); URINE COLOR YELLOW (YELLOW); URINE GLUCOSE (UA) NEG (Normal); URINE LEUKOCYTE ESTERASE NEG Leu/uL (Negative); URINE PROTEIN 30 mg/dL (NEGATIVE)
[2017-11-03 01:55] LABS: BASO # 0.1 K/uL (0.0-0.2); BASO % 1.2 % (0.0-2.0); EOS # 0.3 K/uL (0.0-0.7); EOS % 2.8 % (0.0-4.0); HEMOGLOBIN 14.4 g/dL (12.0-18.0); LYMPH # 3.5 K/uL (1.0-4.3); LYMPH % 27.8 % (20.0-40.0); MEAN CELL VOLUME 89.3 fl (80.0-94.0); MEAN CORPUSCULAR HEMOGLOBIN 29.8 pg (27.0-31.0); MEAN CORPUSCULAR HGB CONC 33.4 g/dL (33.0-37.0); MEAN PLATELET VOLUME 9.7 fl (7.2-11.7); MONO # 1.1 K/uL (0.0-0.8); MONO % 8.9 % (0.0-10.0); NEUT # 7.5 K/uL (1.8-7.0); NEUT % 59.3 % (50.0-75.0); NRBC % 0.1 % (0.0-0.0); RBC 4.83 Mil/uL (4.40-5.90); RED CELL DISTRIBUTION WIDTH 13.4 % (11.5-14.5); WHITE BLOOD COUNT 12.5 K/uL (4.8-10.8)
[2017-11-03 02:12] LABS: ALBUMIN 3.8 g/dL (3.5-5.0); BLOOD UREA NITROGEN 18 mg/dl (9-20); CALCIUM 9.1 mg/dL (8.4-10.2); GFR AFRICAN-AMERICAN > 60; GFR NON-AFRICAN AMERICAN > 60
[2017-11-03 02:13] LABS: ALB/GLOB RATIO 1.2 (1.0-2.1); ALT/SGPT 54 U/L (21-72); AST/SGOT 60 U/L (17-59); LIPASE 116 U/L (23-300)
[2017-11-03] MEDS ORDERED: Iohexol 240 (50 ml) PO ONE (03:12)
[2017-11-03] MEDS ORDERED: Iohexol 300 100 ML IJ ONE (06:12)
[2017-11-03] MEDS ORDERED: Sodium Chloride 0.9% 50 ML IV ONE (06:12)
--- NOTE | 2017-11-03 07:03 | ED PDOC ---
- Laboratory Results Result Diagrams: 11/03/17 01:54 11/03/17 01:54 - ECG O2 Sat by Pulse Oximetry: 99 Medical Decision Making Medical Decision Making: Time: 0700 --Patient is endorsed to provider by Dr. Cleaning, pending CT ABD/pelvis results, negative per radiologist On re-eval patient appeared well with nontender abdomen DC from ED and followup instructions provided Scribe Attestation: Documented by Wen Villagran, acting as a scribe for Thiago Wood III, DO. Provider Scribe Attestation: All medical record entries made by the Scribe were at my direction and personally dictated by me. I have reviewed the chart and agree that the record accurately reflects my personal performance of the history, physical exam, medical decision making, and the department course for this patient. I have also personally directed, reviewed, and agree with the discharge instructions and disposition. Disposition - Clinical Impression Clinical Impression: Abdominal pain, Injury of knee, Generalized weakness - POA Present On Arrival: None - Disposition Referrals: [facility] [Outside] Disposition: Routine/Home Disposition Time: 09:45 Condition: STABLE Instructions: Acute Abdomen (Belly Pain), Adult (DC), Weakness (ED) Forms: [employer] (Swedish)
[2017-11-03 07:42] VITALS: RESP 14
--- NOTE | 2017-11-03 09:15 | CT ---
Date of service: 11/03/2017 PROCEDURE: CT Abdomen and Pelvis with contrast HISTORY: abd pain COMPARISON: Comparison is made with the previous study dated 09/23/2014 TECHNIQUE: Contrast dose: 95 cc of Omnipaque 300. Axial and reformatted coronal and sagittal CT images of the abdomen and pelvis were obtained after IV and oral contrast administration. Radiation dose: Total exam DLP = 338.42 mGy-cm. This CT exam was performed using one or more of the following dose reduction techniques: Automated exposure control, adjustment of the mA and/or kV according to patient size, and/or use of iterative reconstruction technique. FINDINGS: LOWER THORAX: No acute pathology noted at the lung bases. No evidence of pleural effusion LIVER: Unremarkable. No gross lesion or ductal dilatation. GALLBLADDER AND BILE DUCTS: Unremarkable. PANCREAS: Unremarkable. No gross lesion or ductal dilatation. SPLEEN: Unremarkable. ADRENALS: Unremarkable. No mass. KIDNEYS AND URETERS: Unremarkable. No hydronephrosis. No solid mass. VASCULATURE: Unremarkable. No aortic aneurysm. BOWEL: Unremarkable. No obstruction. No gross mural thickening. APPENDIX: Normal appendix. PERITONEUM: Unremarkable. No free fluid. No free air. LYMPH NODES: Unremarkable. No enlarged lymph nodes. BLADDER: Unremarkable. REPRODUCTIVE: Unremarkable. BONES: No acute fracture. OTHER FINDINGS: None. IMPRESSION: No evidence of acute pathology in the abdomen and pelvis. No significant interval change noted since the previous exam. Preliminary report was submitted by [facility].
--- NOTE | 2017-11-03 10:52 | RAD ---
Date of service: 11/03/2017 PROCEDURE: Right Knee Radiographs. HISTORY: injury COMPARISON: Right knee radiographs dated 11/06/2016. FINDINGS: BONES: No acute fracture. Prior ACL repair. JOINTS: Mild tricompartmental narrowing with mild degenerative spurring. JOINT EFFUSION: None. OTHER FINDINGS: None. IMPRESSION: No demonstrated fracture dislocation. Prior ACL repair. Mild degenerative changes.
[2017-11-03 13:36] VITALS: BP 122/79; PULSE 74; TEMP 98
--- NOTE | 2017-11-06 14:04 | CARD ---
APPROVED REPORT Date of service: 11/03/2017 EKG Measurement Heart [id number] <Conclusion> Sinus bradycardia Otherwise normal ECG
[2017-11-14 09:27] VITALS: O2SAT 99
== END 2017-11-03 13:37 | disposition home or self-care (01) ==
LOC: H.ER
DX: R53.1 Weakness (principal); R10.9 Unspecified abdominal pain; S89.91XA Unspecified injury of right lower leg, initial encounter; X50.0XXA Overexertion from strenuous movement or load, initial encounter; Y92.89 Other specified places as the place of occurrence of the external cause
CPT/HCPCS: 73562; 74177; 80053; 81003; 83690; 85025; 93005; 96360; 99285; J7030; Q9966; Q9967

== ENCOUNTER 2017-11-17 17:18 | Emergency (ER) | payer MEDICAID, OTHER ==
[2017-11-17 17:18] VITALS: BMI 29.0
[2017-11-17 17:26] VITALS: RESP 18; O2SAT 99
--- NOTE | 2017-11-17 19:02 | ED PDOC ---
HPI: Psych/Substance Abuse Time Seen by Provider: 11/17/17 18:42 Chief Complaint (Nursing): Psychiatric Evaluation Chief Complaint (Provider): Psychiatric Evaluation History Per: Patient History/Exam Limitations: no limitations Onset/Duration Of Symptoms: Days (x4) Current Symptoms Are (Timing): Still Present Additional Complaint(s): 42 year old male with a history of anxiety and depression presents to the ED seeking a prescription of remeron. Patient reports that the last time he was seen in the ER he was given a prescription for it. He subsequently lost it and has been having difficulty sleeping for the past 4 days. Patient takes 30 mg of remeron daily. He denies suicidal or homicidal ideation. PMD: Dr. Serrato Past Medical History Reviewed: Historical Data, Nursing Documentation, Vital Signs Vital Signs: Last Vital Signs Temp 98.6 F 11/17/17 17:24 Pulse 70 11/17/17 17:24 Resp 18 11/17/17 17:24 BP 135/74 11/17/17 17:24 Pulse Ox 99 11/17/17 17:24 - Medical History PMH: Anxiety, Depression, Gastritis, Chronic Pain Denies: Diabetes, Hepatitis, HIV, HTN, Chronic Kidney Disease, Seizures, Sexually Transmitted Disease - Surgical History Surgical History: No Surg Hx - Family History Family History: States: Unknown Family Hx - Immunization History Hx Tetanus Toxoid Vaccination: No Hx Influenza Vaccination: No (2015) Hx Pneumococcal Vaccination: No - Home Medications Home Medications: Ambulatory Orders Medication Instructions Recorded Amoxicillin/Clavulanate [Augmentin 1 tab PO BID #14 tab 04/06/17 875 MG-125 MG] Ibuprofen [Motrin] 600 mg PO TID #21 tab 04/06/17 Loratadine [Claritin] 10 mg PO DAILY #10 tab 04/06/17 predniSONE [Prednisone] 20 mg PO BID #10 tab 04/06/17 Famotidine [Pepcid] 40 mg PO DAILY #20 tablet 05/21/17 Ondansetron ODT [Zofran ODT] 4 mg PO DAILY PRN #20 odt 05/21/17 Mirtazapine [Remeron] 30 mg PO DAILY #14 tablet 11/17/17 - Allergies Allergies/Adverse Reactions: Allergies Allergy/AdvReac Type Severity Reaction Status Date / Time No Known Allergies Allergy Verified 07/13/18 00:47 Review of Systems ROS Statement: Except As Marked, All Systems Reviewed And Found Negative Physical Exam - Reviewed Nursing Documentation Reviewed: Yes Vital Signs Reviewed: Yes - Physical Exam Appears: Positive for: Non-toxic, No Acute Distress Head Exam: Positive for: ATRAUMATIC Skin: Positive for: Normal Color, Warm, DRY Eye Exam: Positive for: Normal appearance Neck: Positive for: Normal Respiratory: Negative for: Accessory Muscle Use, Respiratory Distress Neurologic/Psych: Positive for: Alert - ECG O2 Sat by Pulse Oximetry: 99 (RA) Pulse Ox Interpretation: Normal Medical Decision Making Medical Decision Making: Scribe Attestation: Documented by Ebony Petit, acting as a scribe for Grace Roth PA-C. Provider Scribe Attestation: All medical record entries made by the Scribe were at my direction and personally dictated by me. I have reviewed the chart and agree that the record accurately reflects my personal performance of the history, physical exam, medical decision making, and the department course for this patient. I have also personally directed, reviewed, and agree with the discharge instructions and disposition. Disposition - Clinical Impression Clinical Impression: Depression - Patient ED Disposition Is Patient to be Admitted: No Counseled Patient/Family Regarding: Diagnosis, Need For Followup, Rx Given - Disposition [facility]errals[facility] Disposition: Routine/Home Disposition Time: 19:01 Condition: STABLE Prescriptions: Mirtazapine [Remeron] 30 mg PO DAILY #14 tablet Instructions: Depression Forms: [employer] (Latvian)
[2017-11-17 19:06] VITALS: BP 126/78; PULSE 78; TEMP 98
== END 2017-11-17 19:05 | disposition home or self-care (01) ==
LOC: H.ER 17:18
DX: F32.9 Major depressive disorder, single episode, unspecified (principal); F41.9 Anxiety disorder, unspecified; G89.29 Other chronic pain

== ENCOUNTER 2017-12-03 15:42 | Emergency (ER) | payer MEDICAID ==
[2017-12-03 15:42] VITALS: BMI 29.0
[2017-12-03 15:47] VITALS: RESP 18
[2017-12-03] MEDS ORDERED: Pantoprazole 20 mg EC Tab PO STA (16:03)
--- NOTE | 2017-12-03 16:08 | ED PDOC ---
HPI: Abdomen Time Seen by Provider: 12/03/17 15:56 Chief Complaint (Nursing): Abdominal Pain Chief Complaint (Provider): Heartburn History Per: Patient History/Exam Limitations: no limitations Onset/Duration Of Symptoms: Days (years) Outside of [place] travel?: No Current Symptoms Are (Timing): Gone Now Additional Complaint(s): Pt. here as he has had heartburn for years and wants a prescription for priolosec. States his medicaid finally came in so he wants a prescription for it. States no pain in abd currently. It comes and goes in different parts of his abd and is the same pain he has had for years. No nausea, vomit, diarrhea, weakness, dizziness, headaches, back pain, chest pain, dyspnea. No dysuria. Also has right knee pain for years and since his medicaid kicked in, he wants the strongest medicine possible for it. The knee pain is the same as usual that is ongoing for years. No injury, weakness, calf pain, numbness, tingles. Ambulating with no issues. Had surgery on the knee years ago and has been hurting since. Not taking any meds for it. PCP Dr. Alvarez. Past Medical History Reviewed: Nursing Documentation, Vital Signs Vital Signs: Last Vital Signs Temp 98.6 F 12/03/17 15:45 Pulse 90 12/03/17 15:45 Resp 18 12/03/17 15:45 BP 127/79 12/03/17 15:45 Pulse Ox 98 12/03/17 15:45 - Medical History PMH: Anxiety, Depression, Gastritis, Chronic Pain Denies: Diabetes, Hepatitis, HIV, HTN, Chronic Kidney Disease, Seizures, Sexually Transmitted Disease - Surgical History Other surgeries: knee surgery - Family History Family History: States: Unknown Family Hx - Immunization History Hx Tetanus Toxoid Vaccination: No Hx Influenza Vaccination: No (2015) Hx Pneumococcal Vaccination: No - Home Medications Home Medications: Ambulatory Orders Medication Instructions Recorded Amoxicillin/Clavulanate [Augmentin 1 tab PO BID #14 tab 04/06/17 875 MG-125 MG] Ibuprofen [Motrin] 600 mg PO TID #21 tab 04/06/17 Loratadine [Claritin] 10 mg PO DAILY #10 tab 04/06/17 predniSONE [Prednisone] 20 mg PO BID #10 tab 04/06/17 Famotidine [Pepcid] 40 mg PO DAILY #20 tablet 05/21/17 Ondansetron ODT [Zofran ODT] 4 mg PO DAILY PRN #20 odt 05/21/17 Mirtazapine [Remeron] 30 mg PO DAILY #14 tablet 11/17/17 Ibuprofen [Motrin] 600 mg PO TID 7 Days tab 12/03/17 Omeprazole Magnesium [Prilosec Otc] 20 mg PO DAILY PRN 5 Days 12/03/17 tablet.dr - Allergies Allergies/Adverse Reactions: Allergies Allergy/AdvReac Type Severity Reaction Status Date / Time No Known Allergies Allergy Verified 12/03/17 15:44 Review of Systems ROS Statement: Except As Marked, All Systems Reviewed And Found Negative Constitutional: Negative for: Fever, Weakness Gastrointestinal: Positive for: Abdominal Pain (gone currently and not present during visit) Musculoskeletal: Positive for: Other (knee pain) Physical Exam - Reviewed Nursing Documentation Reviewed: Yes Vital Signs Reviewed: Yes - Physical Exam Appears: Positive for: Non-toxic, No Acute Distress Head Exam: Positive for: ATRAUMATIC, NORMAL INSPECTION, NORMOCEPHALIC Skin: Positive for: Normal Color, Warm, DRY Eye Exam: Positive for: EOMI, Normal appearance, PERRL ENT: Positive for: Normal ENT Inspection Neck: Positive for: Normal, Painless ROM Cardiovascular/Chest: Positive for: Regular Rate, Rhythm Respiratory: Positive for: CNT, Normal Breath Sounds Pulses-Dorsalis Pedis (L): 2+ Pulses-Dorsalis Pedis (R): 2+ Gastrointestinal/Abdominal: Positive for: Normal Exam, Soft. Negative for: Tenderness, Distended, Guarding, Rebound, Asicites Back: Positive for: Normal Inspection. Negative for: L CVA Tenderness, R CVA Tenderness Extremity: Positive for: Normal ROM, Other (no swelling or erythema or right knee; popliteal pulse 2+ right). Negative for: Tenderness, Pedal Edema, Calf Tenderness, Deformity Neurologic/Psych: Positive for: Alert, Oriented - ECG O2 Sat by Pulse Oximetry: 98 - Progress ED Course And Treament: 1611: Stable. AAOx3. Has capacity to make decisions. In no pain. Tolerates PO. Refusing any blood work, ekg, or any work up. States he just wants prescriptions for prilosec and pain meds that are very strong. Advised that we could be missing any underlying problems like a heart and abd problem that can cause or decreased functioning if evaluation is not done. He refuses and is aware is taking his own risk if something is acutely wrong. Is aware of our pain policy. Will rx motrin and prilosec. Disposition - Clinical Impression Clinical Impression: Abdominal discomfort, Chronic knee pain - Patient ED Disposition Is Patient to be Admitted: No Counseled Patient/Family Regarding: Diagnosis, Need For Followup, Rx Given - Disposition Referrals: [facility] [Outside] Disposition: Routine/Home Disposition Time: 16:16 Condition: STABLE Additional Instructions: You are refusing any evaluation and could have an underlying problem like a heart or abdominal issue that is causing your symptoms. You can or have decreased functioning from it. You should return right away for further evaluation and treatment. At least go to your doctor without fail tomorrow. Prescriptions: Ibuprofen [Motrin] 600 mg PO TID 7 Days tab Omeprazole Magnesium [Prilosec Otc] 20 mg PO DAILY PRN 5 Days tablet.dr YANG Reason: Pain, Mild (1-3) Instructions: Chronic Knee Pain, Stomach Ache and Stomach Upset
[2017-12-03] MEDS ORDERED: Pantoprazole 40 mg EC Tab PO ONE (16:32)
[2017-12-03 16:47] VITALS: BP 146/79; PULSE 73; TEMP 98.5; O2SAT 99
== END 2017-12-03 16:46 | disposition home or self-care (01) ==
LOC: H.ER 15:42
DX: R10.9 Unspecified abdominal pain (principal); M25.561 Pain in right knee; G89.29 Other chronic pain; F32.9 Major depressive disorder, single episode, unspecified; F41.9 Anxiety disorder, unspecified

== ENCOUNTER 2018-07-27 20:50 | Emergency (ER) | payer MEDICAID ==
[2018-07-27 20:50] VITALS: BMI 29.0
[2018-07-27 21:02] VITALS: BP 135/82; PULSE 96; RESP 16; TEMP 98.6; O2SAT 96
[2018-07-27] MEDS ORDERED: Fluorescein 1 mg Ophthalmic Strip ONE (21:29)
[2018-07-27] MEDS ORDERED: Naproxen 500 MG TAB PO STA (21:33)
--- NOTE | 2018-07-27 21:45 | ED PDOC ---
HPI: CCC, URI, Sore Throat Time Seen by Provider: 07/27/18 21:04 Chief Complaint (Nursing): ENT Problem Chief Complaint (Provider): ENT Problem History Per: Patient History/Exam Limitations: no limitations Have you had recent travel within the past 21 days to any of the following countries: [place], [place], [place] or [place]?: No Onset/Duration Of Symptoms: Hrs (This morning ) Current Symptoms Are (Timing): Still Present Additional Complaint(s): 42 year old male patient with no significant past medical history presents to the ED with throat pain, nasal congestion, bilateral ear pressure, and mild headache onset since waking up this morning. Patient states that he has pain with swallowing and has not taken any medications prior to arrival. Patient denies sick contact, recent travel, fever, nausea, vomiting, diarrhea, chest pains, abdominal pain, cough and shortness of breath. Of note, patient is also requesting a medication refill for heartburn - per old charts, patient has been prescribed Pepcid in the past. PMD: Pita Salas MD Past Medical History Reviewed: Historical Data Vital Signs: Last Vital Signs Temp 98.6 F 07/27/18 21:00 Pulse 96 H 07/27/18 21:00 Resp 16 07/27/18 21:00 BP 135/82 07/27/18 21:00 Pulse Ox 96 07/27/18 21:00 COLE Report Viewed: Yes - Medical History PMH: Anxiety, Depression, Gastritis, Chronic Pain - Surgical History Other surgeries: right knee surgery - Family History Family History: States: No Known Family Hx - Social History Current smoker - smoking cessation education provided: Yes (heavy smoker) - Home Medications Home Medications: Ambulatory Orders Medication Instructions Recorded Amoxicillin/Clavulanate [Augmentin 1 tab PO BID #14 tab 04/06/17 875 MG-125 MG] Ibuprofen [Motrin] 600 mg PO TID #21 tab 04/06/17 Loratadine [Claritin] 10 mg PO DAILY #10 tab 04/06/17 predniSONE [Prednisone] 20 mg PO BID #10 tab 04/06/17 Famotidine [Pepcid] 40 mg PO DAILY #20 tablet 05/21/17 Ondansetron ODT [Zofran ODT] 4 mg PO DAILY PRN #20 odt 05/21/17 Mirtazapine [Remeron] 30 mg PO DAILY #14 tablet 11/17/17 Ibuprofen [Motrin] 600 mg PO TID 7 Days tab 12/03/17 Omeprazole Magnesium [Prilosec Otc] 20 mg PO DAILY PRN 5 Days 12/03/17 tablet. Amoxicillin 875 mg PO BID #14 tab 07/27/18 Famotidine [Pepcid] 40 mg PO DAILY PRN #10 tablet 07/27/18 Naproxen 500 mg PO BID PRN #20 tab 07/27/18 - Allergies Allergies/Adverse Reactions: Allergies Allergy/AdvReac Type Severity Reaction Status Date / Time No Known Allergies Allergy Verified 07/27/18 20:59 Review of Systems Constitutional: Negative for: Fever ENT: Positive for: Nose Congestion, Throat Pain (while swallowing ), Other (bilateral ear pressure ) Cardiovascular: Negative for: Chest Pain Respiratory: Negative for: Cough, Shortness of Breath Gastrointestinal: Negative for: Nausea, Vomiting, Abdominal Pain, Diarrhea Neurological: Positive for: Headache (mild ) Physical Exam - Reviewed Nursing Documentation Reviewed: Yes Vital Signs Reviewed: Yes - Physical Exam Comments: GENERAL APPEARANCE: Patient is awake, alert, oriented x 3, in no acute distress. Resting comfortably. SKIN: Warm, dry; (-) cyanosis. ENT: TMs: (-)bulging and (-) erythema bilaterally. Ear canals patent bilaterally (-) cerumen impaction (-) erythema (-) edema (-) exudate (-) pain with helix or tragus movement. Pharynx: (+)diffuse pharynngeal/tonsilar erythema (+) bilateral tonsilar exudate and hypertrophy (+) uvula midline. NAres: patent. (-) sinus tenderness NECK: Supple, FROM (-) stiffness, (-) tenderness, (-) lymphadenopathy. CHEST AND RESPIRATORY: (-) rhonchi, (-) rales, (-) wheezes; breath sounds equal bilaterally. Respirations even and nonlabored. CARDIAC: RRR ABDOMEN AND GI: Soft; (-) tenderness. EXTREMITIES: (-) deformity NEURO AND PSYCH: Mental status as above. Cranial nerves grossly intact; strength symmetric. Gait: steady. Speech: clear. (-) facial asymmetry - ECG O2 Sat by Pulse Oximetry: 96 (RA) Pulse Ox Interpretation: Normal Medical Decision Making Medical Decision Making: Clinical Impressions: Pharyngitis and tonsillitis; medication refill Time: 21:20 Plan: -Amoxil 500 mg CAP PO -Naproxen 500 mg PO -toradol 30 IM ONCE ONE -Throat Culture -Rapid Strep Group A Antigen -re-evaluation 2244 Rapid Strep: negative On re-evaluation, patient reports improvement of symptoms. On exam, patient remains AAOx3, in no acute distress. Vitals stable. Lab/Diagnostic results d/w the patient in great detail. Diagnosis of pharyngitis/tonsillitis, medication refill d/w the patient. Based on history, exam and diagnostic results, plan will be for outpatient follow up. Patient instructed to follow-up with pmd / referral provided / the clinic in 1- 2 days without fail. Advised to take medication as prescribed. Return to the emergency room at any time for any new or worsening symptoms. Patient states he fully agrees with and understands discharge instructions. States that he agrees with the plan and disposition. Verbalized and repeated discharge instructions and plan. I have given the patient opportunity to ask any additional questions. Scribe Attestation: Documented by Fernanda Willams, acting as a scribe for Ciarra Mas PA-C. Provider Scribe Attestation: All medical record entries made by the Scribe were at my direction and personally dictated by me. I have reviewed the chart and agree that the record accurately reflects my personal performance of the history, physical exam, medical decision making, and the department course for this patient. I have also personally directed, reviewed, and agree with the discharge instructions and disposition. Disposition - Clinical Impression Clinical Impression: Pharyngitis, Tonsillitis, Medication refill - Patient ED Disposition Is Patient to be Admitted: No Counseled Patient/Family Regarding: Studies Performed, Diagnosis, Need For Followup, Rx Given - Disposition Referrals: Pita Salas MD [Family Provider] - Disposition: Routine/Home Disposition Time: 22:40 Condition: STABLE Additional Instructions: The emergency medical care you received today was directed at your acute symptoms. If you were prescribed any medication, please fill it and take as directed. It may take several days for your symptoms to resolve. Return to the Emergency Department if your symptoms worsen, do not improve, or if you have any other problems. Please contact your doctor in 2 days for re-evaluation and follow up / or call one of the physicians/clinics you have been referred to that are listed on the Patient Visit Information form that is included in your discharge packet. Bring any paperwork you were given at discharge with you along with any medications you are taking to your follow up visit. Our treatment cannot replace ongoing medical care by a primary care provider (PCP) outside of the emergency department. Prescriptions: Amoxicillin 875 mg PO BID #14 tab Famotidine [Pepcid] 40 mg PO DAILY PRN #10 tablet PRN Reason: Dyspepsia Naproxen 500 mg PO BID PRN #20 tab PRN Reason: Pain, Moderate (4-7) Instructions: Sore Throat in Adults, Dyspepsia, Acid Reflux (Gastroesophageal Reflux Disease), Adult (DC) Forms: [employer] (Azerbaijani) Print Language: KHMER - POA Present On Arrival: None Results - Lab Results Lab Results: 07/27/18 22:08 Grp A Beta Strep Ag Negative
== END 2018-07-27 23:24 | disposition home or self-care (01) ==
LOC: H.ER 20:50
DX: J03.90 Acute tonsillitis, unspecified (principal)

== ENCOUNTER 2018-07-30 17:21 | Emergency (ER) | payer MEDICAID ==
[2018-07-30 17:21] VITALS: BMI 29.0
[2018-07-30 18:35] VITALS: BP 128/73; PULSE 86; RESP 18; TEMP 98.9; O2SAT 96
[2018-07-30] MEDS ORDERED: Tdap Vaccine 0.5 ml Vial (10-64 yrs) IM ONE ×2 (21:33→22:23)
--- NOTE | 2018-07-30 21:33 | ED PDOC ---
Upper Extremity Pain/Injury Time Seen by Provider: 07/30/18 21:17 Chief Complaint (Nursing): Finger,Hand,&Wrist Chief Complaint (Provider): Left Hand Injury History Per: Patient History/Exam Limitations: no limitations Onset/Duration Of Symptoms: Hrs (injury happened around 1500) Current Symptoms Are (Timing): Still Present Additional Complaint(s): 42 year old male presents to the ED for evaluation of a left fourth finger injury. 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 He states he did not get time to clean it, but has it wrapped to control bleeding. Denies other injuries. Right hand dominant Tetanus not up to date PMD: Pita Salas Past Medical History Reviewed: Historical Data, Nursing Documentation, Vital Signs Vital Signs: Last Vital Signs Temp 98.9 F 07/30/18 18:30 Pulse 86 07/30/18 18:30 Resp 18 07/30/18 18:30 BP 128/73 07/30/18 18:30 Pulse Ox 96 07/30/18 18:30 - Medical History PMH: Anxiety, Depression, Gastritis, Hepatitis, Chronic Pain - Surgical History Other surgeries: right knee arthroscopy - Family History Family History: States: Unknown Family Hx - Social History Current smoker - smoking cessation education provided: Yes Alcohol: None Drugs: Cannabis - Home Medications Home Medications: Ambulatory Orders Medication Instructions Recorded Amoxicillin/Clavulanate [Augmentin 1 tab PO BID #14 tab 04/06/17 875 MG-125 MG] Ibuprofen [Motrin] 600 mg PO TID #21 tab 04/06/17 Loratadine [Claritin] 10 mg PO DAILY #10 tab 04/06/17 predniSONE [Prednisone] 20 mg PO BID #10 tab 04/06/17 Famotidine [Pepcid] 40 mg PO DAILY #20 tablet 05/21/17 Ondansetron ODT [Zofran ODT] 4 mg PO DAILY PRN #20 odt 05/21/17 Mirtazapine [Remeron] 30 mg PO DAILY #14 tablet 11/17/17 Ibuprofen [Motrin] 600 mg PO TID 7 Days tab 12/03/17 Omeprazole Magnesium [Prilosec Otc] 20 mg PO DAILY PRN 5 Days 12/03/17 tablet Amoxicillin 875 mg PO BID #14 tab 07/27/18 Famotidine [Pepcid] 40 mg PO DAILY PRN #10 tablet 07/27/18 Naproxen 500 mg PO BID PRN #20 tab 07/27/18 Acetaminophen [Acetaminophen 8 650 mg PO Q8 PRN #21 tablet.er 07/30/18 Hour] Bacitracin Ointment [Bacitracin] 1 applic TOP BID #1 tube 07/30/18 - Allergies Allergies/Adverse Reactions: Allergies Allergy/AdvReac Type Severity Reaction Status Date / Time No Known Allergies Allergy Verified 07/27/18 20:59 Review of Systems ROS Statement: Except As Marked, All Systems Reviewed And Found Negative Musculoskeletal: Positive for: Hand Pain (left fourth digit injury, controlled bleeding) Physical Exam - Reviewed Nursing Documentation Reviewed: Yes Vital Signs Reviewed: Yes - Physical Exam Comments: GENERAL APPEARANCE: Patient is awake, alert, oriented x 3, in no acute distress. Resting comfortably. SKIN: Warm, dry; (-) cyanosis. NECK: Supple, FROM ENT: Mucus membranes moist. Airway patent, (-) stridor. CHEST AND RESPIRATORY: (-) rales, (-) rhonchi, (-) wheezes; breath sounds equal bilaterally. Respirations even and nonlabored. HEART AND CARDIOVASCULAR: (-) irregularity LEFT UPPER EXTREMITY: Hand: (+) proximal palmar phalanx of fourth digit with 1cm curvalinear superficial laceration, skin flap intact, (+) minimal tenderness, (-) edema, (-) ecchymosis, (-) erythema, (-) active bleeding. Sensation and capillary refill intact. Full ROM of hand and all digits. Remainder of UE: nontender, no deformity. NEURO AND PSYCH: Mental status as above. Gait: steady. Soeech: clear. (-) facial asymmetry - ECG O2 Sat by Pulse Oximetry: 96 (RA) Pulse Ox Interpretation: Normal Medical Decision Making Medical Decision Making: Initial Impression: finger laceration Time: 2134 Initial Plan: --Tetanus booster IM ordered however patient refused --Tylenol 650mg PO --Wound irrigated with saline and betadine --Re-evaluation 2229 Wound repair performed with Dermabond by Chace QUICK. See procedure note. Patient tolerated wound repair well. Educated on adhesive wound care. Lab/Diagnostic results d/w the patient in great detail. Diagnosis of finger laceration d/w the patient. Based on history, exam and diagnostic results, plan will be for outpatient follow up with PMD/hand. Patient instructed to follow-up with pmd / referral provided / the clinic in 1- 2 days without fail. Advised to take medication as prescribed. Return to the emergency room at any time for any new or worsening symptoms. Patient states he fully agrees with and understands discharge instructions. States that he agrees with the plan and disposition. Verbalized and repeated discharge instructions and plan. I have given the patient opportunity to ask any additional questions. ------ Scribe Attestation: Documented by Ellie Ga acting as a scribe for Ciarra Mas PA-C. Provider Scribe Attestation: All medical record entries made by the Scribe were at my direction and personally dictated by me. I have reviewed the chart and agree that the record accurately reflects my personal performance of the history, physical exam, medical decision making, and the department course for this patient. I have also personally directed, reviewed, and agree with the discharge instructions and disposition. Procedures - Laceration/Wound Repair Left 4th Digit Wound Length (cm): 1 Wound's Depth, Shape: superficial (curvilinear) Wound Explored: clean Irrigated w/ Saline (ccs): 200 Wound Debrided: minimal Wound Repaired With: Skin adhesive Layer Closure?: No Wound Complexity: Simple Disposition - Clinical Impression Clinical Impression: Finger laceration - Patient ED Disposition Is Patient to be Admitted: No Counseled Patient/Family Regarding: Studies Performed, Diagnosis, Need For Followup, Rx Given - Disposition Referrals: Audie Schrader MD [Medical Doctor] - primary, doctor [Other] Disposition: Routine/Home Disposition Time: 22:30 Condition: STABLE Additional Instructions: The emergency medical care you received today was directed at your acute symptoms. If you were prescribed any medication, please fill it and take as directed. It may take several days for your symptoms to resolve. Return to the Emergency Department if your symptoms worsen, do not improve, or if you have any other problems. Please contact your doctor in 2 days for re-evaluation and follow up / or call one of the physicians/clinics you have been referred to that are listed on the Patient Visit Information form that is included in your discharge packet. Bring any paperwork you were given at discharge with you along with any medications you are taking to your follow up visit. Our treatment cannot replace ongoing medical care by a primary care provider (PCP) outside of the emergency department. Prescriptions: Acetaminophen [Acetaminophen 8 Hour] 650 mg PO Q8 PRN #21 tablet.er PRN Reason: Pain, Moderate (4-7) Bacitracin Ointment [Bacitracin] 1 applic TOP BID #1 tube Instructions: Laceration Repair With Glue (DC), Wound Care (DC), Common Finger Injuries (DC) Forms: [facility] (Italian) Print Language: ANDORRAN - POA Present On Arrival: None
== END 2018-07-30 23:04 | disposition home or self-care (01) ==
LOC: H.ER 17:21
DX: S61.215A Laceration without foreign body of left ring finger without damage to nail, initial encounter (principal); W26.8XXA Contact with other sharp object(s), not elsewhere classified, initial encounter; Y99.0 Civilian activity done for income or pay

== ENCOUNTER 2018-09-18 22:38 | Emergency (ER) | payer MEDICAID ==
[2018-09-18 22:38] VITALS: BMI 29.0
[2018-09-18 22:43] VITALS: RESP 16; O2SAT 98
[2018-09-18] MEDS ORDERED: Sodium Chloride 0.9% 1,000 ML IV STA (23:31)
--- NOTE | 2018-09-18 23:36 | ED PDOC ---
HPI: General Adult Time Seen by Provider: 09/18/18 22:59 Chief Complaint (Nursing): GI Problem Chief Complaint (Provider): nausea, vomiting, dizziness History Per: Patient History/Exam Limitations: no limitations Onset/Duration Of Symptoms: Days (1 month), Waxing/Waning Additional Complaint(s): 43 y/o male presents for evaluation of intermittent dizziness, nausea, and vomiting x 1 month. + decreased appetite. Patient states he feels like he is dehydrated. Patient is requesting blood work to check for dehydration and diabetes. Patient denies fever, headache, extremity numbness/weakness, chest pain, shortness of breath, palpitations, abdominal pain, urinary symptoms, changes in bowel movements. Past Medical History Reviewed: Historical Data, Nursing Documentation, Vital Signs Vital Signs: Last Vital Signs Temp 97.2 F L 09/18/18 22:43 Pulse 78 09/18/18 22:43 Resp 16 09/18/18 22:43 BP 121/77 09/18/18 22:43 Pulse Ox 98 09/18/18 22:43 Primary Care Provider: Pita Salas - Medical History PMH: Anxiety, Depression, Gastritis, Hepatitis, Chronic Pain Denies: Diabetes, HIV, HTN, Chronic Kidney Disease, Seizures, Sexually Transmitted Disease - Family History Family History: States: Unknown Family Hx - Immunization History Hx Tetanus Toxoid Vaccination: No Hx Influenza Vaccination: No (2015) Hx Pneumococcal Vaccination: No - Home Medications Home Medications: Ambulatory Orders Medication Instructions Recorded Amoxicillin/Clavulanate [Augmentin 1 tab PO BID #14 tab 04/06/17 875 MG-125 MG] Ibuprofen [Motrin] 600 mg PO TID #21 tab 04/06/17 Loratadine [Claritin] 10 mg PO DAILY #10 tab 04/06/17 predniSONE [Prednisone] 20 mg PO BID #10 tab 04/06/17 Famotidine [Pepcid] 40 mg PO DAILY #20 tablet 05/21/17 Ondansetron ODT [Zofran ODT] 4 mg PO DAILY PRN #20 odt 05/21/17 Mirtazapine [Remeron] 30 mg PO DAILY #14 tablet 11/17/17 Ibuprofen [Motrin] 600 mg PO TID 7 Days tab 12/03/17 Omeprazole Magnesium [Prilosec Otc] 20 mg PO DAILY PRN 5 Days 12/03/17 tablet. Amoxicillin 875 mg PO BID #14 tab 07/27/18 Famotidine [Pepcid] 40 mg PO DAILY PRN #10 tablet 07/27/18 Naproxen 500 mg PO BID PRN #20 tab 07/27/18 Acetaminophen [Acetaminophen 8 650 mg PO Q8 PRN #21 tablet.er 07/30/18 Hour] Bacitracin Ointment [Bacitracin] 1 applic TOP BID #1 tube 07/30/18 Ondansetron ODT [Zofran ODT] 4 mg PO Q8 PRN #10 odt 09/19/18 - Allergies Allergies/Adverse Reactions: Allergies Allergy/AdvReac Type Severity Reaction Status Date / Time No Known Allergies Allergy Verified 09/18/18 22:40 Review of Systems ROS Statement: Except As Marked, All Systems Reviewed And Found Negative Gastrointestinal: Positive for: Nausea, Vomiting Neurological: Positive for: Dizziness Physical Exam - Reviewed Nursing Documentation Reviewed: Yes Vital Signs Reviewed: Yes - Physical Exam Appears: Positive for: Well, Non-toxic, No Acute Distress Head Exam: Positive for: ATRAUMATIC, NORMAL INSPECTION, NORMOCEPHALIC Skin: Positive for: Normal Color Eye Exam: Positive for: Normal appearance ENT: Positive for: Normal ENT Inspection Cardiovascular/Chest: Positive for: Regular Rate, Rhythm Respiratory: Positive for: Normal Breath Sounds Gastrointestinal/Abdominal: Positive for: Normal Exam Back: Positive for: Normal Inspection Extremity: Positive for: Normal ROM Neurological/Psych: Positive for: Awake, Alert, Oriented (x3) - Laboratory Results Result Diagrams: 09/19/18 00:24 09/19/18 00:24 - ECG ECG: Positive for: Viewed By Me (reviewed by ED attending) ECG Rhythm: Positive for: Sinus Rhythm O2 Sat by Pulse Oximetry: 98 - Progress ED Course And Treament: -accucheck -cbc -cmp -lipase -urinalysis -ekg -IV NS bolus -IV zofran On re-eval, patient states he is feeling much better. Tolerating PO Patient educated on findings, discharged with rx Zofran Advised increase fluid intake, bland diet Follow up PMD within 2-3 days Return precautions given Disposition - Clinical Impression Clinical Impression: Nausea and vomiting - Patient ED Disposition Is Patient to be Admitted: No Counseled Patient/Family Regarding: Studies Performed, Diagnosis, Need For Followup, Rx Given - Disposition Disposition: Routine/Home Disposition Time: 03:00 Condition: IMPROVED Prescriptions: Ondansetron ODT [Zofran ODT] 4 mg PO Q8 PRN #10 odt PRN Reason: Nausea/Vomiting Instructions: Nausea and Vomiting, Adult Forms: [facility] (Spanish), [facility] ED School/Work Excuse
[2018-09-19 00:27] LABS: BASO # 0.1 K/uL (0.0-0.2); BASO % 0.8 % (0.0-2.0); EOS # 0.3 K/uL (0.0-0.7); EOS % 2.2 % (0.0-4.0); LYMPH # 3.9 K/uL (1.0-4.3); LYMPH % 28.9 % (20.0-40.0); MEAN CELL VOLUME 88.2 fl (80.0-94.0); MEAN CORPUSCULAR HEMOGLOBIN 29.2 pg (27.0-31.0); MEAN CORPUSCULAR HGB CONC 33.1 g/dL (33.0-37.0); MEAN PLATELET VOLUME 9.1 fl (7.2-11.7); MONO # 1.1 K/uL (0.0-0.8); MONO % 7.9 % (0.0-10.0); NEUT # 8.1 K/uL (1.8-7.0); NEUT % 60.2 % (50.0-75.0); NRBC % 0.1 % (0.0-0.0); RBC 4.81 Mil/uL (4.40-5.90); RED CELL DISTRIBUTION WIDTH 13.5 % (11.5-14.5); WHITE BLOOD COUNT 13.4 K/uL (4.8-10.8)
[2018-09-19 00:36] LABS: ALB/GLOB RATIO 1.2 (1.0-2.1); ALBUMIN 3.6 g/dL (3.5-5.0); ALT/SGPT 24 U/L (21-72); AST/SGOT 28 U/L (17-59); BLOOD UREA NITROGEN 13 mg/dl (9-20); CALCIUM 8.7 mg/dL (8.4-10.2); GFR NON-AFRICAN AMERICAN > 60
[2018-09-19 02:30] LABS: URINE BILIRUBIN NEGATIVE (NEGATIVE); URINE BLOOD SMALL (NEGATIVE); URINE CLARITY SLIGHTY-CLOUDY (Clear); URINE COLOR YELLOW (YELLOW); URINE GLUCOSE (UA) NEG (NEGATIVE); URINE LEUKOCYTE ESTERASE NEG Leu/uL (Negative); URINE PROTEIN NEGATIVE (NEGATIVE); URINE UROBILINOGEN 0.2-1.0 mg/dL (0.2-1.0)
[2018-09-19 03:35] VITALS: BP 143/90; PULSE 92; TEMP 97.9
--- NOTE | 2018-09-19 10:41 | CARD ---
APPROVED REPORT Date of service: 09/18/2018 EKG Measurement Heart [id number] <Conclusion> Normal sinus rhythm with sinus arrhythmia Normal ECG
== END 2018-09-19 03:34 | disposition home or self-care (01) ==
LOC: H.ER 22:38
DX: R11.2 Nausea with vomiting, unspecified (principal); G89.29 Other chronic pain
CPT/HCPCS: 80053; 81003; 82948; 83690; 85025; 93005; 96361; 96374; 99284; J2405; J7030